=== PATIENT | male | born 1980 | race Hispanic/Latino ===

== ENCOUNTER 2016-08-15 07:58 | Emergency (ER) | payer SELFPAY ==
[2016-08-15] MEDS ORDERED: TRIPLE ANTIBIOTIC TP ONE ×2 (10:45→10:49)
[2016-08-15 10:53] VITALS: BP 145/101
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
== END 2016-08-15 11:52 | disposition left against medical advice (07) ==
LOC: ED 07:58
DX: S00.31XA Abrasion of nose, initial encounter (principal); G89.29 Other chronic pain; F17.200 Nicotine dependence, unspecified, uncomplicated; V09.9XXA Pedestrian injured in unspecified transport accident, initial encounter; Y93.89 Activity, other specified; Y99.9 Unspecified external cause status; Y92.410 Unspecified street and highway as the place of occurrence of the external cause
CPT/HCPCS: 99282; A6250

== ENCOUNTER 2018-05-24 22:43 | Inpatient (IN) | payer SELFPAY ==
[2018-05-24] MEDS ORDERED: NACL 0.9% 500 ML IV PRN (22:55)
[2018-05-24] MEDS ORDERED: DIPRIVAN 10 MG/ML 1,000 MG/100 ML BOTTLE IV ONE (22:55)
[2018-05-24] MEDS ORDERED: ARTIFICIAL TEARS OPHTH OINT OU PRN (22:55)
[2018-05-24] MEDS ORDERED: fentaNYL DRIP Premix 2,000 MCG/100 ML BAG IV ONE (22:55)
[2018-05-24] MEDS ORDERED: VASELINE LIP THERAPY TP PRN (22:55)
[2018-05-24] MEDS ORDERED: SUBLIMAZE IV PRN (22:55)
[2018-05-24] MEDS ORDERED: DIPRIVAN 10 MG/ML 1,000 MG/100 ML BOTTLE IV SCH (23:00)
--- NOTE | 2018-05-24 23:01 | Emergency Department Report ---
ED General Adult HPI - General Chief complaint: Dyspnea/Respdistress Stated complaint: POSS OD Time Seen by Provider: 05/24/18 22:53 Source: family, EMS (verbal report received from EMS.ems notes not available at time of chart dictation) Mode of arrival: Stretcher Limitations: Altered Mental Status - History of Present Illness Initial comments: This is a 38-year-old gentleman brought to the hospital by EMS as an out of hospital presumed overdose. History is obtained from EMS, the patient's and his brother. Patient apparently has a history of polysubstance abuse as well as methamphetamine use. Brother, George; [phone] , Gisselle; [phone] as per verbal report from EMS, and the patient was found in bed, with multiple pill bottles, including narcotics, and a suspected overdose. As per his , he was apparently not breathing. EMS reports patient was not breathing very well, was somewhat sonorous, and give the patient Narcan. After giving Narcan, the patient apparently became very combative, and required administration of Benadryl, Versed, and other sedatives in the field. Upon arrival to the emergency room, the patient was breathing sonorously. The patient was intubated for airway protection. Postintubation, discussed findings and case with patient's brother and his . His brother articulated to this provider, that the patient had made some "odd" remarks recently, and he was concerned that the patient might attempt to hurt himself. He reported that they recently went out to lunch within the past week or so, the patient was not acting like his normal self. The patient's brother specifically concerned that this may be an intentional overdose. The patient is currently intubated and sedated, and cannot describe exacerbating or relieving factors, intention, or nature of his situation. As per EMS, patient had a normal fingerstick. There is no trauma as per EMS and family. -: unknown Consistency: other Improves with: other Worsens with: other Associated Symptoms: confusion - Related Data Allergies Allergy/AdvReac Type Severity Reaction Status Date / Time No Known Allergies Allergy Verified 05/24/18 23:11 ED Review of Systems ROS: Stated complaint: POSS OD Other details as noted in HPI Comment: Unobtainable due to pts medical conditions ED Past Medical Hx - Past Medical History Additional medical history: chronic back and neck pain - Surgical History Additional Surgical History: hernia repair - Social History Smoking Status: Current Every Day Smoker Substance Use Type: None ED Physical Exam - General Limitations: Altered Mental Status General appearance: lethargic - Head Head exam: Present: atraumatic, normocephalic - Eye Eye exam: Present: normal appearance, PERRL - ENT ENT exam: Present: normal orophraynx, mucous membranes moist, normal external ear exam - Neck Neck exam: Present: normal inspection, full ROM. Absent: tenderness, meningismus - Respiratory Respiratory exam: Present: respiratory distress, decreased breath sounds - Cardiovascular Cardiovascular Exam: Present: normal rhythm, tachycardia, normal heart sounds. Absent: systolic murmur, diastolic murmur, rubs, gallop - GI/Abdominal GI/Abdominal exam: Present: soft. Absent: distended, tenderness, guarding, rebound, rigid, pulsatile mass - Rectal Rectal exam: Present: normal inspection - exam: Present: normal inspection External exam: Present: normal external exam - Extremities Exam Extremities exam: Present: normal inspection, full ROM, other (patient moving 4 extremities prior to intubation) - Back Exam Back exam: Present: normal inspection, full ROM. Absent: tenderness, CVA tenderness (R), paraspinal tenderness, vertebral tenderness - Neurological Exam Neurological exam: Present: altered, other (there is no facial droop. Moving 4 extremities prior to intubation. Unable to complete detailed neurologic examination secondary to altered mental status) - Psychiatric Psychiatric exam: Present: other - Skin Skin exam: Present: warm, dry, intact, normal color. Absent: rash ED Course Vital Signs 05/24/18 05/24/18 05/24/18 22:45 23:20 23:30 Pulse Rate 136 H 138 H 134 H Respiratory 15 18 20 Rate Blood Pressure 177/104 130/71 O2 Sat by Pulse 99 96 95 Oximetry 05/24/18 05/24/18 05/25/18 23:31 23:45 00:00 Pulse Rate 129 H 127 H 117 H Respiratory 20 20 Rate Blood Pressure 130/71 112/58 112/59 O2 Sat by Pulse 96 96 97 Oximetry 05/25/18 05/25/18 00:18 00:55 Pulse Rate 119 H 104 H Respiratory 20 Rate Blood Pressure 130/71 88/48 O2 Sat by Pulse Oximetry - Reevaluation(s) Reevaluation #1: 05/25/18 00:23 Dr Smith accepts to medical service Reevaluation #2: 05/25/18 01:[address] scan of the brain is negative for acute disease. - Intubation Time Out Performed: Yes Sedative: Etomidate Mg Given: 20 Paralytic: Rocuronium Mg Given: 100 Laryngoscope: Trupti Size: 4 Assist Device Used: Bougie ET Tube Size: 7.5 Tube Secured Depth (cm): 23 Tube Secured Location: teeth Tube Placement Confirmation: equal breath sounds bilat, no breath sounds over epi, confirmation by capnometr Patient Tolerated Procedure: well Intubation Complications: none Additional Comments: Patient placed on a nasal cannula at 15 L/m. Receives ixl-gngot-ydth ventilation. Towel rolls in place underneath the shoulders to align ear to sternal notch. Direct laryngoscopy performed, and epiglottis is visualized. Elastic bougie was inserted, and palpable clicks are appreciated, as bougie traverses the trachea. A 7.5 endotracheal tube is inserted over bougie catheter, bougie catheter is then retracted, automatic pilot mechanic balloon is inflated, and [id number]-wduwe-[id number] ventilations applied with color change capnography. There is appropriate color change, cond ensation in the tube, and equal breath sounds bilaterally. Radial laryngoscopy is then performed, and confirms tube placement. ED Medical Decision Making - Lab Data Result diagrams: 05/24/18 22:51 05/24/18 23:00 Vital Signs 05/24/18 05/24/18 22:45 23:31 Pulse Rate 136 H 129 H Respiratory 15 Rate Blood Pressure 177/104 130/71 O2 Sat by Pulse 99 96 Oximetry Lab Results 05/24/18 05/24/18 05/24/18 Range/Units 22:51 22:51 22:51 WBC 11.1 H (4.5-11.0) K/mm3 RBC 5.24 H (3.65-5.03) M/mm3 Hgb 16.5 H (11.8-15.2) gm/dl Hct 48.7 H (35.5-45.6) % MCV 93 (84-94) fl MCH 32 (28-32) pg MCHC 34 (32-34) % RDW 14.0 (13.2-15.2) % Plt Count 359 (140-440) K/mm3 PT (12.2-14.9) Sec. INR (0.87-1.13) POC ABG pH (7.35-7.45) POC ABG pCO2 (35-45) POC ABG pO2 (80-105) POC ABG HCO3 POC ABG Total CO2 POC ABG O2 Sat POC ABG Base Excess FiO2 % Sodium (137-145) mmol/L Potassium (3.6-5.0) mmol/L Chloride (98-107) mmol/L Carbon Dioxide (22-30) mmol/L Anion Gap mmol/L BUN (9-20) mg/dL Creatinine (0.8-1.5) mg/dL Estimated GFR ml/min BUN/Creatinine Ratio % Glucose (75-100) mg/dL Calcium (8.4-10.2) mg/dL Magnesium (1.7-2.3) mg/dL Total Bilirubin (0.1-1.2) mg/dL AST (5-40) units/L Alkaline Phosphatase (35-129) units/L Total Protein (6.3-8.2) g/dL Albumin (3.9-5) g/dL Albumin/Globulin Ratio % Urine Color (Yellow) Urine Turbidity (Clear) Urine pH (5.0-7.0) Ur Specific [place] (1.003-1.030) Urine Protein (Negative) mg/dL Urine Glucose (UA) (Negative) mg/dL Urine Ketones (Negative) mg/dL Urine Blood (Negative) Urine Nitrite (Negative) Urine Bilirubin (Negative) Urine Urobilinogen (<2.0) mg/dL Ur Leukocyte Esterase (Negative) Urine WBC (Auto) (0.0-6.0) /HPF Urine RBC (Auto) (0.0-6.0) /HPF Hyaline Casts /LPF Urine Mucus /HPF Salicylates 1.2 L (2.8-20.0) mg/dL Urine Opiates Screen Urine Methadone Screen Acetaminophen < 5.0 L (10.0-30.0) ug/mL Ur Barbiturates Screen Ur Phencyclidine Scrn Urine Cocaine Screen U Marijuana (THC) Screen Plasma/Serum Alcohol (0-0.07) % 01/14/19 01/14/19 01/14/19 Range/Units 22:51 22:51 23:00 WBC (4.5-11.0) K/mm3 RBC (3.65-5.03) M/mm3 Hgb (11.8-15.2) gm/dl Hct (35.5-45.6) % MCV (84-94) fl MCH (28-32) pg MCHC (32-34) % RDW (13.2-15.2) % Plt Count (140-440) K/mm3 PT 13.2 (12.2-14.9) Sec. INR 0.96 (0.87-1.13) POC ABG pH (7.35-7.45) POC ABG pCO2 (35-45) POC ABG pO2 (80-105) POC ABG HCO3 POC ABG Total CO2 POC ABG O2 Sat POC ABG Base Excess FiO2 % Sodium 132 L (137-145) mmol/L Potassium 4.6 (3.6-5.0) mmol/L Chloride 94.5 L (98-107) mmol/L Carbon Dioxide 21 L (22-30) mmol/L Anion Gap 21 mmol/L BUN 14 (9-20) mg/dL Creatinine 1.2 (0.8-1.5) mg/dL Estimated GFR > 60 ml/min BUN/Creatinine Ratio 12 % Glucose 120 H (75-100) mg/dL Calcium 9.4 (8.4-10.2) mg/dL Magnesium 2.50 H (1.7-2.3) mg/dL Total Bilirubin 0.30 (0.1-1.2) mg/dL AST 32 (5-40) units/L Alkaline Phosphatase 68 (35-129) units/L Total Protein 7.5 (6.3-8.2) g/dL Albumin 4.7 (3.9-5) g/dL Albumin/Globulin Ratio 1.7 % Urine Color (Yellow) Urine Turbidity (Clear) Urine pH (5.0-7.0) Ur Specific [place] (1.003-1.030) Urine Protein (Negative) mg/dL Urine Glucose (UA) (Negative) mg/dL Urine Ketones (Negative) mg/dL Urine Blood (Negative) Urine Nitrite (Negative) Urine Bilirubin (Negative) Urine Urobilinogen (<2.0) mg/dL Ur Leukocyte Esterase (Negative) Urine WBC (Auto) (0.0-6.0) /HPF Urine RBC (Auto) (0.0-6.0) /HPF Hyaline Casts /LPF Urine Mucus /HPF Salicylates (2.8-20.0) mg/dL Urine Opiates Screen Urine Methadone Screen Acetaminophen (10.0-30.0) ug/mL Ur Barbiturates Screen Ur Phencyclidine Scrn Urine Cocaine Screen U Marijuana (THC) Screen Plasma/Serum Alcohol < 0.01 (0-0.07) % 05/24/18 05/24/18 05/24/18 Range/Units 23:19 23:19 23:24 WBC (4.5-11.0) K/mm3 RBC (3.65-5.03) M/mm3 Hgb (11.8-15.2) gm/dl Hct (35.5-45.6) % MCV (84-94) fl MCH (28-32) pg MCHC (32-34) % RDW (13.2-15.2) % Plt Count (140-440) K/mm3 PT (12.2-14.9) Sec. INR (0.87-1.13) POC ABG pH 7.303 L (7.35-7.45) POC ABG pCO2 42.6 (35-45) POC ABG pO2 102 (80-105) POC ABG HCO3 21.1 POC ABG Total CO2 22 POC ABG O2 Sat 97 POC ABG Base Excess -5 FiO2 50 % Sodium (137-145) mmol/L Potassium (3.6-5.0) mmol/L Chloride (98-107) mmol/L Carbon Dioxide (22-30) mmol/L Anion Gap mmol/L BUN (9-20) mg/dL Creatinine (0.8-1.5) mg/dL Estimated GFR ml/min BUN/Creatinine Ratio % Glucose (75-100) mg/dL Calcium (8.4-10.2) mg/dL Magnesium (1.7-2.3) mg/dL Total Bilirubin (0.1-1.2) mg/dL AST (5-40) units/L Alkaline Phosphatase (35-129) units/L Total Protein (6.3-8.2) g/dL Albumin (3.9-5) g/dL Albumin/Globulin Ratio % Urine Color Yellow (Yellow) Urine Turbidity Clear (Clear) Urine pH 5.0 (5.0-7.0) Ur Specific [place] 1.019 (1.003-1.030) Urine Protein 100 mg/dl (Negative) mg/dL Urine Glucose (UA) Neg (Negative) mg/dL Urine Ketones Neg (Negative) mg/dL Urine Blood Sm (Negative) Urine Nitrite Neg (Negative) Urine Bilirubin Neg (Negative) Urine Urobilinogen < 2.0 (<2.0) mg/dL Ur Leukocyte Esterase Neg (Negative) Urine WBC (Auto) 6.0 (0.0-6.0) /HPF Urine RBC (Auto) 1.0 (0.0-6.0) /HPF Hyaline Casts 1 /LPF Urine Mucus Few /HPF Salicylates (2.8-20.0) mg/dL Urine Opiates Screen Presumptive negative Urine Methadone Screen Presumptive negative Acetaminophen (10.0-30.0) ug/mL Ur Barbiturates Screen Presumptive negative Ur Phencyclidine Scrn Presumptive negative Urine Cocaine Screen Presumptive negative U Marijuana (THC) Screen Presumptive negative Plasma/Serum Alcohol (0-0.07) % - EKG Data -: EKG Interpreted by Me Rate: tachycardia - EKG Data 05/25/18 00:18 Tachycardia, 147 bpm, normal axis, normal intervals, low voltage, poor R progression, abnormal EKG, not consistent with ST elevation myocardial infarction. - Radiology Data Radiology results: pending, report reviewed, image reviewed interpreted by me: X-ray of the chest shows appropriate placement of endotracheal tube and nasogastric tube. - Medical Decision Making Differential diagnosis, including but not limited to: Overdose, respiratory failure, suicidality Assessment and plan: 38-year-old gentleman who presents with overdose, respiratory failure, requiring intubation. He will be ventilated on the lung protective strategy. We will provide supportive care. Screening laboratory studies thus far unremarkable. Given history and collateral history from family, brother, concerned about possible intentional overdose. Given that we do not know what time the overdose took place, given concomitant respiratory failure, it is my opinion that charcoal risks outweigh benefits. Noncontrast CT scan of the brain is pending to exclude hemorrhage, patient is placed on a 1013, and I explained this the patient's brother and who verbalized understanding. Discussed with critical care physician, Dr. Gama, who is amenable to placement into the intensive care unit. We will contact the medical team to arrange admission into the intensive care unit. Critical Care Time: Yes Critical care time in (mins) excluding proc time.: 45 Critical care attestation.: If time is entered above; I have spent that time in minutes in the direct care o f this critically ill patient, excluding procedure time. ED Disposition Clinical Impression: Overdose, Respiratory failure Disposition: OP ADMIT IP TO THIS HOSP Is pt being admited?: Yes Condition: Critical
[2018-05-24 23:05] LABS: Hematocrit 48.7 % (35.5-45.6); Hemoglobin 16.5 gm/dl (11.8-15.2); Mean Corpuscular HGB Conc 34 % (32-34); Mean Corpuscular Volume 93 fl (84-94); Platelet Count 359 K/mm3 (140-440); Red Blood Count 5.24 M/mm3 (3.65-5.03)
[2018-05-24] MEDS: fentaNYL DRIP Premix 2,000 MCG/100 ML BAG IV SCH (23:05)
[2018-05-24 23:11] LABS: INR 0.96 (0.87-1.13)
[2018-05-24 23:39] LABS: Albumin 4.7 g/dL (3.9-5); BUN/Creatinine Ratio 12; Blood Urea Nitrogen 14 mg/dL (9-20); Calcium 9.4 mg/dL (8.4-10.2); Hemolysis Index 25
[2018-05-25] LABS: Bilirubin,Urine NEG (Negative); Blood,Urine SM (Negative); Color,Urine Yellow (Yellow); Hyaline Casts,Urine 1 /LPF; Mucus,Urine FEW /HPF; Urobilinogen,Urine < 2.0 mg/dL (<2.0)
--- NOTE | 2018-05-25 00:09 | XRay Report ---
FINAL REPORT EXAM: XR CHEST 1V AP HISTORY: ETT placement TECHNIQUE: A portable semi-upright view the chest was obtained. FINDINGS: The tip of the ET tube is at the joelle. The tip of the NG tube is in good position in the stomach. T he heart size is normal. The pulmonary vasculature is at the upper limits normal. There are no locali zed infiltrates or effusions. The skeletal structures do not show any acute changes. IMPRESSION: No acute infiltrates or congestion. Tip of the ET tube is at the joelle. NG tube in good position in the stomach.
[2018-05-25 00:12] LABS: Cannabinoid Screen,Urine PRESUMPTIVE NEGATIVE; Cocaine Screen,Urine PRESUMPTIVE NEGATIVE; Methadone Screen,Urine PRESUMPTIVE NEGATIVE; Opiate Screen,Urine PRESUMPTIVE NEGATIVE
[2018-05-25 00:24] LABS: Amphetamine Screen,Urine PRESUMPTIVE POSITIVE; Benzodiazepines Screen,Urine PRESUMPTIVE POSITIVE
--- NOTE | 2018-05-25 00:59 | Cat Scan Report ---
FINAL REPORT EXAM: CT HEAD/BRAIN WO CON HISTORY: ams TECHNIQUE: CT was performed from the foramen magnum through the vertex in the axial plane without th e use of intravenous contrast. PRIORS: None. FINDINGS: The hankins/white matter attenuation pattern is normal. There is no mass lesion or mass effect. There ar e no abnormal extra-axial fluid collections. There is no evidence of acute intracranial hemorrhage or infarct. The ventricles are of normal size and configuration. The skull and orbits are unremarkable . There is patchy mucosal thickening in the right sphenoid sinus and in the bilateral ethmoid air wilber ls. IMPRESSION: Normal CT of the head.
[2018-05-25 01:13] LABS: Alanine Aminotransferase 38 units/L (7-56)
[2018-05-25] MEDS ORDERED: AMIDATE IV ONE (01:15)
[2018-05-25] MEDS ORDERED: ZEMURON IV ONE (01:15)
[2018-05-25] MEDS ORDERED: fentaNYL DRIP Premix 2,000 MCG/100 ML BAG IV ONE ×3 (01:35→10:51)
[2018-05-25] MEDS ORDERED: TYLENOL PR PRN (02:02)
[2018-05-25] MEDS ORDERED: ZOFRAN IV PRN (02:03)
[2018-05-25] MEDS ORDERED: VASELINE LIP THERAPY TP ONE (02:03)
[2018-05-25] MEDS ORDERED: DIPRIVAN 10 MG/ML 1,000 MG/100 ML BOTTLE IV ONE (02:11)
[2018-05-25] MEDS ORDERED: NACL 0.9% 1000 ML 2,000 ML ONE (02:33)
[2018-05-25] MEDS ORDERED: NACL 0.9% 1000 ML 1,000 ML IV ONE ×2 (02:38)
[2018-05-25 06:09] LABS: Creatine Kinase MB 8.3 ng/mL (0.0-4.0)
--- NOTE | 2018-05-25 07:23 | History and Physical Report ---
CHIEF COMPLAINT: Shortness of breath. OTHER COMPLAINT: Includes seizure attack. HISTORY OF PRESENT ILLNESS: The patient is a 38-year-old male, who was brought to the Emergency Room by [facility] after the patient's say that patient was noted to have started having seizure attack with jerking movement of the body and then developed respiratory distress and EMS was called; however, the patient has history of polysubstance abuse. There was no history of chest pain, no history of fever, nausea or vomiting. The patient's stated he was doing something when all of a sudden he started having this attack of seizure that led to the patient's change in mental status and shortness of breath. PAST MEDICAL HISTORY: Pertinent for recent diagnosis of seizure disorder. Also the patient has past medical history of chronic back pain and neck pain and there is past history of polysubstance abuse according to the Emergency Room documentation. FAMILY HISTORY: Family history is noncontributory. SOCIAL HISTORY: The patient smokes cigarettes, uses illicit drugs and is not clear whether the patient drinks alcohol. MEDICATIONS: The patient's home medications are not known. ALLERGIES: There are no known drug allergies. REVIEW OF SYSTEMS: CONSTITUTIONAL: There is no fever, no chills, no diaphoresis. HEENT: There is no headache or sore throat. CARDIOVASCULAR SYSTEM: There is no chest pain or orthopnea. RESPIRATORY SYSTEM: Shortness of breath is present. There is no cough. GASTROINTESTINAL SYSTEM: There is no nausea, no vomiting, no abdominal pain, diarrhea or constipation. NEUROLOGICAL SYSTEM: Seizure attack noted. Change in mental status noted. MUSCULOSKELETAL SYSTEM: There is no joint pain or swelling. DERMATOLOGICAL SYSTEM: There is no skin rash or itching. GENITOURINARY SYSTEM: There is no dysuria, hematuria or flank pain. Rest of system review is normal. PHYSICAL EXAMINATION: GENERAL: At the time of exam, the patient was found to be sedated, intubated and mechanically ventilated and not in acute distress. VITAL SIGNS: At the initial time of presentation shows a pulse of 136, respirations 15, blood pressure 177/104, O2 sat of 99% while on mechanical ventilation. The patient's temperature was noted to be normal. HEENT: Show pupils which were round, reactive to light and accommodating. The patient also has ET tube through the mouth. NECK: Neck is supple with no JVD or carotid bruits. CARDIOVASCULAR SYSTEM: Showed normal first and second heart sounds with no gallops or murmurs. RESPIRATORY SYSTEM: Show good air entry on both sides of the lungs with no abnormal breath sounds. GASTROINTESTINAL SYSTEM: Show abdomen to be full, soft, nontender with no organomegaly or rigidity. NEUROLOGIC: Shows the patient to be sedated with no focal deficit. MUSCULOSKELETAL SYSTEM: Show no joint swelling or tenderness. DERMATOLOGIC SYSTEM: Show no skin rash. GENITOURINARY SYSTEM: Showing no costovertebral angle tenderness. PERTINENT LABORATORY AND IMAGING STUDIES: The patient had a CT of the head without contrast done that came back unremarkable. The patient's chest shows no acute infiltrate or congestion with the tip of the ET tube at the jeolle and also the chest x-ray shows nasogastric tube in good position in the stomach. Lab results; the patient's CBC shows slightly elevated white count of 11,100 with a hemoglobin of 16.5 and high hematocrit of 48.7 with normal coagulations studies. The patient's ABG showed low pH of 7.3 with normal pCO2 of 42.6 and normal pO2 of 102 with normal O2 sat of 97% and this was done on FiO2 of 50%. The patient's chemistry shows a low sodium level of 132 with low chloride level of 94.5 and low CO2 of 21 with slightly elevated magnesium level of 2.5. The patient's urinalysis was unremarkable and the patient's toxicology study show positive result for amphetamine and benzodiazepine. DIAGNOSES: 1. Drug overdose with amphetamine and benzodiazepines. 2. Respiratory failure needing mechanical ventilation. 3. Seizure disorder. PLAN OF ACTION: 1. The patient will be admitted to ICU. 2. The patient will have critical care consult with Dr. Gama. 3. The patient will have Neurology consult with Dr. Cecelia Echevarria for management of seizure attack. 4. The patient will have respiratory therapy consult for management of the ventilator. 5. The patient will have Mental Health consult because of the substance abuse. 6. The patient will have cardiac enzymes involving troponin, total CK and CK-MB check q. 6 hours x 2 more levels. 7. The patient will be on p.r.n. medications like Tylenol 650 mg per rectum every 4 hours for fever and headache and will be on IV Zofran 4 mg every 8 hours for nausea and vomiting. 8. The patient will continue IV propofol by protocol for maintenance of sedation while on mechanical ventilation. 9. The patient's DVT prophylaxis will be through heparin 5000 units subQ q. 12 hours. 10. The patient will be on IV Keppra 750 mg q. 12 hours for treatment of seizure. JOB# [id number] OCN/NTS
[2018-05-25] MEDS ORDERED: NACL 0.9% 1000 ML 1,000 ML ONE (09:26)
[2018-05-25] MEDS ORDERED: HEPARIN ONE ×2 (09:50→21:49)
[2018-05-25] MEDS: KEPPRA 750 MG in NACL 0.9% 100 ML IV SCH ×2 (10:38→21:57)
[2018-05-25] MEDS: HEPARIN SUB-Q SCH ×2 (10:38→21:57)
[2018-05-25] MEDS: fentaNYL DRIP Premix 2,000 MCG/100 ML BAG IV SCH (11:23)
[2018-05-25] MEDS ORDERED: HALDOL IV PRN (12:12)
[2018-05-25] MEDS ORDERED: ATIVAN IV PRN (12:13)
[2018-05-25 15:36] LABS: Creatine Kinase MB 18.9 ng/mL (0.0-4.0)
[2018-05-25] MEDS ORDERED: D5NS 1,000 ML IV SCH (17:00)
--- NOTE | 2018-05-25 17:04 | Event Note ---
Date: 05/25/18 Patient with acute resp failure, intubated, seizures, substance abuse. I have seen and examined him. Discussed with at bedside.
--- NOTE | 2018-05-26 04:21 | XRay Report ---
FINAL REPORT PROCEDURE: XR CHEST 1V AP TECHNIQUE: Chest radiograph anteroposterior view. CPT 13486 HISTORY: follow up respiratory failure COMPARISON: 05/24/2018 FINDINGS: Heart: Normal. Mediastinum/Vessels: Normal. Lungs/Pleural space: Normal. Bony thorax: No acute osseous abnormality. Life support devices: None. IMPRESSION: No acute cardiopulmonary abnormality.
[2018-05-26] MEDS ORDERED: HEPARIN ONE (09:35)
[2018-05-26] MEDS: KEPPRA 750 MG in NACL 0.9% 100 ML IV SCH ×2 (09:40→22:46)
[2018-05-26] MEDS: HEPARIN SUB-Q SCH ×2 (09:40→22:45)
--- NOTE | 2018-05-26 10:32 | Consultation ---
History of Present Illness - Reason for Consult Consult date: 05/26/18 Reason for consult: Mental Health Evaluation Requesting physician: GERSON SONG - Chief Complaint Chief complaint: "I didn't try to kill myself" - History of Present Psychiatric Illness 38 y.o. white male who presented to the ER for possible overdose. Today the patient is irritable during the assessment. He stated, "I didn't try to kill myself." He refused to answer anymore questions after making the statement about not trying to kill himself. His spouse Mirtha Salazar was at the bedside. She was asked about what happened, she replied, "I wasn't there." Medications and Allergies Allergies Allergy/AdvReac Type Severity Reaction Status Date / Time No Known Allergies Allergy Verified 05/24/18 23:11 Home Medications Medication Instructions Recorded Confirmed Last Taken Type Oxycodone HCl/Acetaminophen 1 each PO Q6HR PRN 05/26/18 05/26/18 Unknown History [Percocet 10/325 mg] Active Meds: Active Medications Acetaminophen (Tylenol) 650 mg [place] Q4H PRN PRN Reason: Pain, Mild (1-3) Diphenhydramine HCl (Benadryl) 25 mg IV Q6H PRN PRN Reason: Itching Haloperidol Lactate (Haldol) 5 mg IV Q6H PRN PRN Reason: Agitation Heparin Sodium (Porcine) (Heparin) 5,000 unit SUB-Q Q12HR [facility] Last Admin: 05/26/18 09:40 Dose: Not Given Documented by: Hydrophilic Ointment (Vaseline Lip Therapy) 1 applic TP Q2HR PRN PRN Reason: Dry Lips Last Admin: 05/25/18 02:26 Dose: 1 applic Documented by: Levetiracetam 750 mg/ Sodium (Chloride) 107.5 mls @ 400 mls/hr IV Q12HR [facility] Last Admin: 05/26/18 09:40 Dose: 400 mls/hr Documented by: Dextrose/Sodium Chloride (D5ns) 1,000 mls @ 100 mls/hr IV DIRECT [facility] Last Admin: 05/25/18 17:00 Dose: 100 mls/hr Documented by: Lorazepam (Ativan) 2 mg IV Q4H PRN PRN Reason: Agitation Multi-Ingred Cream/Lotion/Oil/Oint (Artificial Tears Ophth Oint) 1 applic OU Q4HR PRN PRN Reason: Dry Eye(s) Ondansetron HCl (Zofran) 4 mg IV Q8H PRN PRN Reason: Nausea And Vomiting Sodium Chloride (Nacl 0.9% 500 Ml) 5 ml IV DIRECT PRN PRN Reason: ARTERIAL PRODUCTION CONTROL EXPEDITER Past psychiatric history - Past Medical History Past Medical History: other (Unable to obtain ) Past Surgical History: Other (Unable to obtain ) - past Psychiatric treatment and history psychiatric treatment history: Unable to obtain a psy hx and fam psy hx. - Social History Social history: lives with family Mental Status Exam - Vital signs Last Vital Signs Temp 97.7 F 05/26/18 09:43 Pulse 71 05/26/18 09:43 Resp 22 05/26/18 09:43 BP 127/87 05/26/18 09:43 Pulse Ox 95 05/26/18 09:43 - Exam Narrative exam: Unable to complete the MSE because the patient refused to cooperate. Results Result Diagrams: 05/24/18 22:51 05/24/18 23:00 Abnormal lab results 05/25/18 Range/Units 15:06 Total Creatine Kinase 789 H (55-170) units/L CK-MB (CK-2) 18.9 H (0.0-4.0) ng/mL All other labs normal. Assessment and Plan Assessment and plan: Impression: R/O Overdose. Today the patient is irritable during the assessment. Positive for benzos and amphetamines. Recommendation/Plan: Continue 1013 and gather collateral information. Reassess the patient in 24 hours. Dispo: Once collateral information is gathered, proper dispo will be determined once medically clear. Will staff with Dr Rick.
[2018-05-26] MEDS ORDERED: HALDOL IM PRN (11:15)
--- NOTE | 2018-05-26 12:07 | Progress Note ---
Assessment and Plan Assessment and plan: Acute respiratory failure, Was intubated, now extubated Breakthrough seizures. Patient had history of seizure last year, as per at bedside. continue keppra Toxic metabolic encephalopathy Drug overdose, presumed patient found with many pill bottles around Suicidal watch Polysubstance abuse. Chronic pain Full code status History Interval history: Now extubated, Gen weakness sleepiness Hospitalist Physical - Physical exam Narrative exam: GEN: Not in acute distress,lying in bed, obese HEENT: Normocephalic, atraumatic, Neck: supple, No JVD Lungs: Clear to auscultation, no wheeze Heart:S1 and S2 regular, no murmurs, rubs or gallop, Abd:soft, non tender, non distended, normal bowel sounds Ext: No edema, no clubbing or cyanosis Neuro: Lethargic, arouseable - Constitutional Vitals: Temp Pulse Resp BP Pulse Ox 97.7 F 71 22 127/87 95 05/26/18 09:43 05/26/18 09:43 05/26/18 09:43 05/26/18 09:43 05/26/18 09:43 Results - Labs CBC & Chem 7: 05/26/18 19:19 05/26/18 19:19 Labs: Laboratory Last Values WBC 11.1 K/mm3 (4.5-11.0) H 05/24/18 22:51 RBC 5.24 M/mm3 (3.65-5.03) H 05/24/18 22:51 Hgb 16.5 gm/dl (11.8-15.2) H 05/24/18 22:51 Hct 48.7 % (35.5-45.6) H 05/24/18 22:51 MCV 93 fl (84-94) 05/24/18 22:51 MCH 32 pg (28-32) 05/24/18 22:51 MCHC 34 % (32-34) 05/24/18 22:51 RDW 14.0 % (13.2-15.2) 05/24/18 22:51 Plt Count 359 K/mm3 (140-440) 05/24/18 22:51 PT 13.2 Sec. (12.2-14.9) 05/24/18 22:51 INR 0.96 (0.87-1.13) 05/24/18 22:51 POC ABG pH 7.327 (7.35-7.45) L 05/25/18 05:46 POC ABG pCO2 41.8 (35-45) 05/25/18 05:46 POC ABG pO2 161 (80-105) H 05/25/18 05:46 POC ABG HCO3 21.9 05/25/18 05:46 POC ABG Total CO2 23 05/25/18 05:46 POC ABG O2 Sat 99 05/25/18 05:46 POC ABG Base Excess -4 05/25/18 05:46 FiO2 40 % 05/25/18 05:46 Sodium 132 mmol/L (137-145) L 05/24/18 23:00 Potassium 4.6 mmol/L (3.6-5.0) 05/24/18 23:00 Chloride 94.5 mmol/L (98-107) L 05/24/18 23:00 Carbon Dioxide 21 mmol/L (22-30) L 05/24/18 23:00 Anion Gap 21 mmol/L 05/24/18 23:00 BUN 14 mg/dL (9-20) 05/24/18 23:00 Creatinine 1.2 mg/dL (0.8-1.5) 05/24/18 23:00 Estimated GFR > 60 ml/min 05/24/18 23:00 BUN/Creatinine Ratio 12 % 05/24/18 23:00 Glucose 120 mg/dL (75-100) H 05/24/18 23:00 POC Glucose 79 (70-105) 05/25/18 14:40 Calcium 9.4 mg/dL (8.4-10.2) 05/24/18 23:00 Magnesium 2.50 mg/dL (1.7-2.3) H 05/24/18 23:00 Total Bilirubin 0.30 mg/dL (0.1-1.2) 05/24/18 23:00 AST 32 units/L (5-40) 05/24/18 23:00 ALT 38 units/L (7-56) 05/24/18 23:00 Alkaline Phosphatase 68 units/L (35-129) 05/24/18 23:00 Total Creatine Kinase 789 units/L (55-170) H 05/25/18 15:06 CK-MB (CK-2) 18.9 ng/mL (0.0-4.0) H 05/25/18 15:06 CK-MB (CK-2) Rel Index 2.3 (0-4) 05/25/18 15:06 Troponin T < 0.010 ng/mL (0.00-0.029) 05/25/18 15:06 Total Protein 7.5 g/dL (6.3-8.2) 05/24/18 23:00 Albumin 4.7 g/dL (3.9-5) 05/24/18 23:00 Albumin/Globulin Ratio 1.7 % 05/24/18 23:00 Urine Color Yellow (Yellow) 05/24/18 23: Urine Turbidity Clear (Clear) 05/24/18 23: Urine pH 5.0 (5.0-7.0) 05/24/18 23: Ur Specific [place] 1.019 (1.003-1.030) 05/24/18 23: Urine Protein 100 mg/dl mg/dL (Negative) 05/24/18 23: Urine Glucose (UA) Neg mg/dL (Negative) 05/24/18 23: Urine Ketones Neg mg/dL (Negative) 05/24/18 23:19 Urine Blood Sm (Negative) 05/24/18 23: Urine Nitrite Neg (Negative) 05/24/18: Urine Bilirubin Neg (Negative) 05/24/18 23: Urine Urobilinogen < 2.0 mg/dL (<2.0) 05/24/18 23:19 Ur Leukocyte Esterase Neg (Negative) 05/24/18 23:19 Urine WBC (Auto) 6.0 /HPF (0.0-6.0) 05/24/18 23:19 Urine RBC (Auto) 1.0 /HPF (0.0-6.0) 05/24/18 23: Hyaline Casts 1 /LPF 05/24/18 23: Urine Mucus Few /HPF 05/24/18 23: Salicylates 1.2 mg/dL (2.8-20.0) L 05/24/18 22:51 Urine Opiates Screen Presumptive negative 05/24/18 23: Urine Methadone Screen Presumptive negative 05/24/18 23: Acetaminophen < 5.0 ug/mL (10.0-30.0) L 05/24/18 22:51 Ur Barbiturates Screen Presumptive negative 05/24/18 23:19 Ur Phencyclidine Scrn Presumptive negative 05/24/18 23:19 Ur Amphetamines Screen Presumptive positive 05/24/18 23:19 U Benzodiazepines Scrn Presumptive positive 05/24/18 23:19 Urine Cocaine Screen Presumptive negative 05/24/18 23:19 U Marijuana (THC) Screen Presumptive negative 05/24/18 23:19 Drugs of Abuse Note Disclamer 05/24/18 23:19 Plasma/Serum Alcohol < 0.01 % (0-0.07) 05/24/18 22:51 Nutrition/Malnutrition Assess - Dietary Evaluation Nutrition/Malnutrition Findings: Nutrition Notes Start: 05/25/18 15:55 Freq: Status: Active Protocol: Document 05/25/18 15:55 PARKER (Rec: 05/25/18 16:26 PARKER [email or web address]) Co-Sign 05/25/18 15:55 NHALL Nutrition Notes Need for Assessment generated from: MD Order Initial or Follow up Assessment Current Diagnosis Respiratory Failure Other Pertinent Diagnosis Hx of polysubstance abuse including methamphetamie use Current Diet No diet ordered Labs/Tests Na: 132 M.5 Pertinent Medications Reviewed Height 6 ft Weight 113.398 kg [place] Body Weight (lbs) 178.0 BMI 33.9 Weight Status Obese Subjective/Other Information MD consult for evaluation of nutritional intake. Pt remains in ED on vent. NG tube placed for suction. Burn Absent Trauma Absent #1 Nutrition Diagnosis Inadequate oral intake Etiology Vent As Evidenced by Signs and Symptoms Pt NPO Is patient on ventilator? Yes Is Patient Ambulatory and/or Out of Bed No REE-([facility]-confined to bed) 2512.668 Kcal/Kg value to use for calculation 18 Approximate Energy Requirements Using 2041 kcal/Kg Calculation Used for Recommendations Kcal/kg Additional Notes IBW: 81kg PRO: 162g/day (2 g/kg IBW) Fluid: 1ml/kcal Nutrition Intervention Change Diet Order: Diet advancement Goal #1 Diet advancement or initiate TF Anticipated Discharge Needs: Unknown at this time Follow-Up By: 05/26/18 Additional Comments F/u: TF consult, extubation
--- NOTE | 2018-05-26 18:26 | Consultation ---
History of Present Illness Consult date: 05/26/18 Requesting physician: GERSON HARP Reason for Consult: altered mental status History of present illness: 38 yr old male with hx of polysubstance abuse, was brought to ER on 05/25/18 after being found at home not breathing well, unresponsive, and with an assortment of different pill bottles surrounding him. After being given Narcan he awakened and became combative. It was felt necessary to intubate him for airway protection. He has since been extubated and is alert and awake, tho drowsy this evening. CT brain was unremarkable. Lab studies are in order. At the present the pt. denies pain, is tolerating meals and resting comfortably. Past History Past Medical History: other (Unable to obtain ) Past Surgical History: Other (Unable to obtain ) Social history: , lives with family Medications and Allergies Allergies Allergy/AdvReac Type Severity Reaction Status Date / Time No Known Allergies Allergy Verified 05/24/18 23:11 Home Medications Medication Instructions Recorded Confirmed Last Taken Type Oxycodone HCl/Acetaminophen 1 each PO Q6HR PRN 05/26/18 05/26/18 Unknown History [Percocet 10/325 mg] Active Meds: Active Medications Acetaminophen (Tylenol) 650 mg [place] Q4H PRN PRN Reason: Pain, Mild (1-3) Diphenhydramine HCl (Benadryl) 25 mg IV Q6H PRN PRN Reason: Itching Haloperidol Lactate (Haldol) 5 mg IM Q6H PRN PRN Reason: Agitation Heparin Sodium (Porcine) (Heparin) 5,000 unit SUB-Q Q12HR [facility] Last Admin: 05/26/18 09:40 Dose: Not Given Documented by: Hydrophilic Ointment (Vaseline Lip Therapy) 1 applic TP Q2HR PRN PRN Reason: Dry Lips Last Admin: 05/25/18 02:26 Dose: 1 applic Documented by: Levetiracetam 750 mg/ Sodium (Chloride) 107.5 mls @ 400 mls/hr IV Q12HR [facility] Last Admin: 05/26/18 09:40 Dose: 400 mls/hr Documented by: Dextrose/Sodium Chloride (D5ns) 1,000 mls @ 100 mls/hr IV DIRECT [facility] Last Admin: 05/25/18 17:00 Dose: 100 mls/hr Documented by: Lorazepam (Ativan) 2 mg IV Q4H PRN PRN Reason: Agitation Multi-Ingred Cream/Lotion/Oil/Oint (Artificial Tears Ophth Oint) 1 applic OU Q4HR PRN PRN Reason: Dry Eye(s) Ondansetron HCl (Zofran) 4 mg IV Q8H PRN PRN Reason: Nausea And Vomiting Sodium Chloride (Nacl 0.9% 500 Ml) 5 ml IV DIRECT PRN 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 vp transportation - intact Motor - 5/5 throughout Reflexes - trace throughout. Sensory - intact to touch and pin bilaterally, all extremities. Cerebellar - intact FFM. Coby, FTN Gait - normal Results - Laboratory Findings CBC and BMP: 05/24/18 22:51 05/24/18 23:00 Abnormal Lab Findings: Abnormal Labs 05/24/18 05/24/18 05/24/18 22:51 22:51 22:51 WBC 11.1 H RBC 5.24 H Hgb 16.5 H Hct 48.7 H POC ABG pH POC ABG pO2 Sodium Chloride Carbon Dioxide Glucose Magnesium Total Creatine Kinase CK-MB (CK-2) Salicylates 1.2 L Acetaminophen < 5.0 L 05/24/18 05/24/18 05/25/18 23:00 23:24 05:11 WBC RBC Hgb Hct POC ABG pH 7.303 L POC ABG pO2 Sodium 132 L Chloride 94.5 L Carbon Dioxide 21 L Glucose 120 H Magnesium 2.50 H Total Creatine Kinase 645 H CK-MB (CK-2) 8.3 H Salicylates Acetaminophen 05/25/18 05/25/18 05:46 15:06 WBC RBC Hgb Hct POC ABG pH 7.327 L POC ABG pO2 161 H Sodium Chloride Carbon Dioxide Glucose Magnesium Total Creatine Kinase 789 H CK-MB (CK-2) 18.9 H Salicylates Acetaminophen Assessment and Plan 38 yr old admitted for overdose, slowly coming out of stupor. Psychiatry is on jason case. CT brain is unremarkable. Lab studies are OK. Plan - Will follow as he clears.
[2018-05-26 20:10] LABS: Hematocrit 42.3 % (35.5-45.6); Hemoglobin 14.5 gm/dl (11.8-15.2); Mean Corpuscular HGB Conc 34 % (32-34); Mean Corpuscular Volume 93 fl (84-94); Platelet Count 228 K/mm3 (140-440); Red Blood Count 4.55 M/mm3 (3.65-5.03); Red Cell Distribution Width 13.9 % (13.2-15.2)
[2018-05-26 20:35] LABS: BUN/Creatinine Ratio 10; Blood Urea Nitrogen 8 mg/dL (9-20); Calcium 8.3 mg/dL (8.4-10.2); Hemolysis Index 4
[2018-05-27] MEDS: HEPARIN SUB-Q SCH ×2 (09:26→21:40)
[2018-05-27] MEDS: KEPPRA 750 MG in NACL 0.9% 100 ML IV SCH ×2 (11:11→21:40)
--- NOTE | 2018-05-27 12:42 | Progress Note ---
Subjective - Reason for Consult Consult date: 05/27/18 Reason for consult: Psychiatry Follow-up - Chief Complaint Chief complaint: "I didn't try to kill myself" 38 y.o. white male who presented to the ER for possible overdose. Today the patient is calm and cooperative during the assessment. He is adamant that he didn't try to kill himself prior to his arrival to the hospital. He stated that he does have a hx of depression and substance abuse. He stated that he have discussed suicide with his brother most recently. He stated that he collapsed at home because of a seizure. He was asked about what happened prior to him collapsing, he stated, 'I don't know." He was asked about taking antidepressants, he stated I have. He denies SI/HI's and AVH's. Mental Status Exam - Vital signs Last Vital Signs Temp 98.0 F 05/27/18 04:23 Pulse 103 H 05/27/18 04:23 Resp 18 05/27/18 04:23 BP 156/84 05/27/18 04:23 Pulse Ox 90 05/27/18 04:23 - Exam Narrative exam: MSE: Appearance: calm, cooperative Behavior: regular eye contact Speech: regular rate and tone Mood: "okay" Affect: congruent to mood Thought Process: circumstantial Thought Content: denies SI/HI's and AVH's Motor Activity: sitting up in bed Cognition: A/O x 3 Insight:variable Judgment: variable Assessment and Plan Impression: Hx of Depression. Substance Use DO (amphetamines). Insomnia. Today the patient is calm and cooperative during the assessment. The patient was positive for benzos. Neuro is following the patient. Recommendation/Plan: Continue 1013, gather collateral information, and start Zoloft 50 mg PO daily for depression. Discussed possible suicidality/medication induced suze with the patient reference Zoloft. Dipso: Continue to assess the patient and once medically cleat, proper dispo will be determined. Will staff with Dr Rick.
--- NOTE | 2018-05-27 14:58 | Progress Note ---
Assessment and Plan Assessment and plan: Acute respiratory failure, Was intubated, now extubated Breakthrough seizures. Patient had history of seizure last year, as per . Patient confirms he had seizure last year while in skilled nursing was treated at [facility] in [place], [place] but not put on Anti-seizure meds continue keppra Toxic metabolic encephalopathy Drug overdose, presumed patient found with many pill bottles around Suicidal watch Polysubstance abuse. Chronic pain Full code status History Interval history: Now extubated, Gen weakness Denies being suicidal Hospitalist Physical - Physical exam Narrative exam: GEN: Not in acute distress,lying in bed, obese HEENT: Normocephalic, atraumatic, Neck: supple, No JVD Lungs: Clear to auscultation, no wheeze Heart:S1 and S2 regular, no murmurs, rubs or gallop, Abd:soft, non tender, non distended, normal bowel sounds Ext: No edema, no clubbing or cyanosis Neuro: AAO x 3, no focal signs Psych: normal mood - Constitutional Vitals: Temp Pulse Resp BP Pulse Ox 98.0 F 103 H 18 156/84 90 05/27/18 04:23 05/27/18 04:23 05/27/18 04:23 05/27/18 04:23 05/27/18 04:23 Results - Labs CBC & Chem 7: 05/26/18 19:19 05/26/18 19:19 Labs: Laboratory Last Values WBC 7.2 K/mm3 (4.5-11.0) 05/26/18 19:19 RBC 4.55 M/mm3 (3.65-5.03) 05/26/18 19:19 Hgb 14.5 gm/dl (11.8-15.2) 05/26/18 19:19 Hct 42.3 % (35.5-45.6) D 05/26/18 19:19 MCV 93 fl (84-94) 05/26/18 19:19 MCH 32 pg (28-32) 05/26/18 19:19 MCHC 34 % (32-34) 05/26/18 19:19 RDW 13.9 % (13.2-15.2) 05/26/18 19:19 Plt Count 228 K/mm3 (140-440) 05/26/18 19:19 PT 13.2 Sec. (12.2-14.9) 05/24/18 22:51 INR 0.96 (0.87-1.13) 05/24/18 22:51 POC ABG pH 7.327 (7.35-7.45) L 05/25/18 05:46 POC ABG pCO2 41.8 (35-45) 05/25/18 05:46 POC ABG pO2 161 (80-105) H 05/25/18 05:46 POC ABG HCO3 21.9 05/25/18 05:46 POC ABG Total CO2 23 05/25/18 05:46 POC ABG O2 Sat 99 05/25/18 05:46 POC ABG Base Excess -4 05/25/18 05:46 FiO2 40 % 05/25/18 05:46 Sodium 139 mmol/L (137-145) D 05/26/18 19:19 Potassium 3.9 mmol/L (3.6-5.0) 05/26/18 19:19 Chloride 100.9 mmol/L (98-107) 05/26/18 19:19 Carbon Dioxide 27 mmol/L (22-30) 05/26/18 19:19 Anion Gap 15 mmol/L 05/26/18 19:19 BUN 8 mg/dL (9-20) L 05/26/18 19:19 Creatinine 0.8 mg/dL (0.8-1.5) 05/26/18 19:19 Estimated GFR > 60 ml/min 05/26/18 19:19 BUN/Creatinine Ratio 10 % 05/26/18 19:19 Glucose 106 mg/dL (75-100) H 05/26/18 19:19 POC Glucose 79 (70-105) 05/25/18 14:40 Calcium 8.3 mg/dL (8.4-10.2) L 05/26/18 19:19 Magnesium 2.50 mg/dL (1.7-2.3) H 05/24/18 23:00 Total Bilirubin 0.30 mg/dL (0.1-1.2) 05/24/18 23:00 AST 32 units/L (5-40) 05/24/18 23:00 ALT 38 units/L (7-56) 05/24/18 23:00 Alkaline Phosphatase 68 units/L (35-129) 05/24/18 23:00 Total Creatine Kinase 494 units/L (55-170) H 05/27/18 05:11 CK-MB (CK-2) 18.9 ng/mL (0.0-4.0) H 05/25/18 15:06 CK-MB (CK-2) Rel Index 2.3 (0-4) 05/25/18 15:06 Troponin T < 0.010 ng/mL (0.00-0.029) 05/25/18 15:06 Total Protein 7.5 g/dL (6.3-8.2) 05/24/18 23:00 Albumin 4.7 g/dL (3.9-5) 05/24/18 23:00 Albumin/Globulin Ratio 1.7 % 05/24/18 23:00 Urine Color Yellow (Yellow) 05/24/18 23: Urine Turbidity Clear (Clear) 05/24/18 23: Urine pH 5.0 (5.0-7.0) 05/24/18 23:19 Ur Specific [place] 1.019 (1.003-1.030) 05/24/18 23:19 Urine Protein 100 mg/dl mg/dL (Negative) 05/24/18 23:19 Urine Glucose (UA) Neg mg/dL (Negative) 05/24/18 23: Urine Ketones Neg mg/dL (Negative) 05/24/18 23:19 Urine Blood Sm (Negative) 05/24/18 23:19 Urine Nitrite Neg (Negative) 05/24/18 23:19 Urine Bilirubin Neg (Negative) 05/24/18 23:19 Urine Urobilinogen < 2.0 mg/dL (<2.0) 05/24/18 23:19 Ur Leukocyte Esterase Neg (Negative) 05/24/18 23:19 Urine WBC (Auto) 6.0 /HPF (0.0-6.0) 05/24/18 23:19 Urine RBC (Auto) 1.0 /HPF (0.0-6.0) 05/24/18 23:19 Hyaline Casts 1 /LPF 05/24/18 23:19 Urine Mucus Few /HPF 05/24/18 23:19 Salicylates 1.2 mg/dL (2.8-20.0) L 05/24/18 22:51 Urine Opiates Screen Presumptive negative 05/24/18 23:19 Urine Methadone Screen Presumptive negative 05/24/18 23:19 Acetaminophen < 5.0 ug/mL (10.0-30.0) L 05/24/18 22:51 Ur Barbiturates Screen Presumptive negative 05/24/18 23:19 Ur Phencyclidine Scrn Presumptive negative 05/24/18 23:19 Ur Amphetamines Screen Presumptive positive 05/24/18 23:19 U Benzodiazepines Scrn Presumptive positive 05/24/18 23:19 Urine Cocaine Screen Presumptive negative 05/24/18 23:19 U Marijuana (THC) Screen Presumptive negative 05/24/18 23:19 Drugs of Abuse Note Disclamer 05/24/18 23:19 Plasma/Serum Alcohol < 0.01 % (0-0.07) 05/24/18 22:51 Nutrition/Malnutrition Assess - Dietary Evaluation Nutrition/Malnutrition Findings: Nutrition Notes Start: 05/25/18 15:55 Freq: Status: Active Protocol: Document 05/25/18 15:55 PARKER (Rec: 05/25/18 16:26 PARKER [email or web address]) Co-Sign 05/25/18 15:55 NHALL Nutrition Notes Need for Assessment generated from: MD Order Initial or Follow up Assessment Current Diagnosis Respiratory Failure Other Pertinent Diagnosis Hx of polysubstance abuse including methamphetamie use Current Diet No diet ordered Labs/Tests Na: 132 M.5 Pertinent Medications Reviewed Height 6 ft Weight 113.398 kg [place] Body Weight (lbs) 178.0 BMI 33.9 Weight Status Obese Subjective/Other Information MD consult for evaluation of nutritional intake. Pt remains in ED on vent. NG tube placed for suction. Burn Absent Trauma Absent #1 Nutrition Diagnosis Inadequate oral intake Etiology Vent As Evidenced by Signs and Symptoms Pt NPO Is patient on ventilator? Yes Is Patient Ambulatory and/or Out of Bed No REE-([facility]-confined to bed) 2512.668 Kcal/Kg value to use for calculation 18 Approximate Energy Requirements Using 2041 kcal/Kg Calculation Used for Recommendations Kcal/kg Additional Notes IBW: 81kg PRO: 162g/day (2 g/kg IBW) Fluid: 1ml/kcal Nutrition Intervention Change Diet Order: Diet advancement Goal #1 Diet advancement or initiate TF Anticipated Discharge Needs: Unknown at this time Follow-Up By: 05/26/18 Additional Comments F/u: TF consult, extubation
[2018-05-27] MEDS: ZOLOFT PO SCH (18:43)
[2018-05-27] MEDS: BENADRYL IV PRN (18:43)
[2018-05-27] MEDS: TYLENOL PO PRN (20:27)
[2018-05-27] MEDS ORDERED: CATAPRES PO ONE (21:30)
[2018-05-28] MEDS: BENADRYL IV PRN (00:40)
[2018-05-28] MEDS: TYLENOL PO PRN ×3 (03:42→23:35)
--- NOTE | 2018-05-28 09:19 | Progress Note ---
Assessment and Plan Assessment and plan: Acute respiratory failure, Was intubated, now extubated Breakthrough seizures. Patient had history of seizure last year, as per . Patient confirms he had seizure last year while in senior care was treated at [facility] in [place], [place] but not put on Anti-seizure meds continue keppra Toxic metabolic encephalopathy Drug overdose, presumed patient found with many pill bottles around Suicidal watch Polysubstance abuse. Chronic pain Full code status Still on 1013 hold History Interval history: Now extubated, Gen weakness Denies being suicidal Hospitalist Physical - Physical exam Narrative exam: GEN: Not in acute distress,lying in bed, obese HEENT: Normocephalic, atraumatic, Neck: supple, No JVD Lungs: Clear to auscultation, no wheeze Heart:S1 and S2 regular, no murmurs, rubs or gallop, Abd:soft, non tender, non distended, normal bowel sounds Ext: No edema, no clubbing or cyanosis Neuro: AAO x 3, no focal signs Psych: normal mood - Constitutional Vitals: Temp Pulse Resp BP Pulse Ox 98.2 F 74 18 142/83 97 05/28/18 04:00 05/28/18 04:00 05/28/18 04:00 05/28/18 04:00 05/28/18 04:00 Results - Labs CBC & Chem 7: 05/26/18 19:19 05/26/18 19:19 Labs: Laboratory Last Values WBC 7.2 K/mm3 (4.5-11.0) 05/26/18 19: RBC 4.55 M/mm3 (3.65-5.03) 05/26/18 19:19 Hgb 14.5 gm/dl (11.8-15.2) 05/26/18 19:19 Hct 42.3 % (35.5-45.6) D 05/26/18 19:19 MCV 93 fl (84-94) 05/26/18 19:19 MCH 32 pg (28-32) 05/26/18 19:19 MCHC 34 % (32-34) 05/26/18 19:19 RDW 13.9 % (13.2-15.2) 05/26/18 19:19 Plt Count 228 K/mm3 (140-440) 05/26/18 19:19 PT 13.2 Sec. (12.2-14.9) 05/24/18 22:51 INR 0.96 (0.87-1.13) 05/24/18 22:51 POC ABG pH 7.327 (7.35-7.45) L 05/25/18 05:46 POC ABG pCO2 41.8 (35-45) 05/25/18 05:46 POC ABG pO2 161 (80-105) H 05/25/18 05:46 POC ABG HCO3 21.9 05/25/18 05:46 POC ABG Total CO2 23 05/25/18 05:46 POC ABG O2 Sat 99 05/25/18 05:46 POC ABG Base Excess -4 05/25/18 05:46 FiO2 40 % 05/25/18 05:46 Sodium 139 mmol/L (137-145) D 05/26/18 19:19 Potassium 3.9 mmol/L (3.6-5.0) 05/26/18 19:19 Chloride 100.9 mmol/L (98-107) 05/26/18 19:19 Carbon Dioxide 27 mmol/L (22-30) 05/26/18 19:19 Anion Gap 15 mmol/L 05/26/18 19:19 BUN 8 mg/dL (9-20) L 05/26/18 19:19 Creatinine 0.8 mg/dL (0.8-1.5) 05/26/18 19:19 Estimated GFR > 60 ml/min 05/26/18 19:19 BUN/Creatinine Ratio 10 % 05/26/18 19:19 Glucose 106 mg/dL (75-100) H 05/26/18 19:19 POC Glucose 79 (70-105) 05/25/18 14:40 Calcium 8.3 mg/dL (8.4-10.2) L 05/26/18 19:19 Magnesium 2.50 mg/dL (1.7-2.3) H 05/24/18 23:00 Total Bilirubin 0.30 mg/dL (0.1-1.2) 05/24/18 23:00 AST 32 units/L (5-40) 05/24/18 23:00 ALT 38 units/L (7-56) 05/24/18 23:00 Alkaline Phosphatase 68 units/L (35-129) 05/24/18 23:00 Total Creatine Kinase 311 units/L (55-170) H 05/28/18 06:14 CK-MB (CK-2) 18.9 ng/mL (0.0-4.0) H 05/25/18 15:06 CK-MB (CK-2) Rel Index 2.3 (0-4) 05/25/18 15:06 Troponin T < 0.010 ng/mL (0.00-0.029) 05/25/18 15:06 Total Protein 7.5 g/dL (6.3-8.2) 05/24/18 23:00 Albumin 4.7 g/dL (3.9-5) 05/24/18 23:00 Albumin/Globulin Ratio 1.7 % 05/24/18 23:00 Urine Color Yellow (Yellow) 05/24/18 23:19 Urine Turbidity Clear (Clear) 05/24/18 23:19 Urine pH 5.0 (5.0-7.0) 05/24/18 23:19 Ur Specific [place] 1.019 (1.003-1.030) 05/24/18 23:19 Urine Protein 100 mg/dl mg/dL (Negative) 05/24/18 23:19 Urine Glucose (UA) Neg mg/dL (Negative) 05/24/18 23: Urine Ketones Neg mg/dL (Negative) 05/24/18 23:19 Urine Blood Sm (Negative) 05/24/18 23:19 Urine Nitrite Neg (Negative) 05/24/18 23:19 Urine Bilirubin Neg (Negative) 05/24/18 23:19 Urine Urobilinogen < 2.0 mg/dL (<2.0) 05/24/18 23:19 Ur Leukocyte Esterase Neg (Negative) 05/24/18 23:19 Urine WBC (Auto) 6.0 /HPF (0.0-6.0) 05/24/18 23:19 Urine RBC (Auto) 1.0 /HPF (0.0-6.0) 05/24/18 23:19 Hyaline Casts 1 /LPF 05/24/18 23:19 Urine Mucus Few /HPF 05/24/18 23:19 Salicylates 1.2 mg/dL (2.8-20.0) L 05/24/18 22:51 Urine Opiates Screen Presumptive negative 05/24/18 23:19 Urine Methadone Screen Presumptive negative 05/24/18 23:19 Acetaminophen < 5.0 ug/mL (10.0-30.0) L 05/24/18 22:51 Ur Barbiturates Screen Presumptive negative 05/24/18 23:19 Ur Phencyclidine Scrn Presumptive negative 05/24/18 23:19 Ur Amphetamines Screen Presumptive positive 05/24/18 23:19 U Benzodiazepines Scrn Presumptive positive 05/24/18 23:19 Urine Cocaine Screen Presumptive negative 05/24/18 23:19 U Marijuana (THC) Screen Presumptive negative 05/24/18 23:19 Drugs of Abuse Note Disclamer 05/24/18 23:19 Plasma/Serum Alcohol < 0.01 % (0-0.07) 05/24/18 22:51 Nutrition/Malnutrition Assess - Dietary Evaluation Nutrition/Malnutrition Findings: Nutrition Notes Start: 05/25/18 15:55 Freq: Status: Active Protocol: Document 05/27/18 15:51 RM (Rec: 05/27/18 15:55 RM [id number]) Nutrition Notes Initial or Follow up Reassessment Current Diagnosis Respiratory Failure Other Pertinent Diagnosis Hx of polysubstance abuse including methamphetamie use, AMS Current Diet No diet ordered Labs/Tests Reviewed Pertinent Medications Reviewed Height 6 ft Weight 113.398 kg [place] Body Weight (lbs) 178.0 BMI 33.9 Subjective/Other Information Pt extubated. Nurse of POC. Burn Absent Trauma Absent #1 Nutrition Diagnosis Inadequate oral intake Diagnosis Progress(for reassessment Continues documentation) Is patient on ventilator? Yes Is Patient Ambulatory and/or Out of Bed No REE-([facility]-confined to bed) 2512.668 Kcal/Kg value to use for calculation 18 Approximate Energy Requirements Using 2041 kcal/Kg Calculation Used for Recommendations Kcal/kg Additional Notes IBW: 81kg PRO: 78-97g/day (0.8-1g/kg, 97kg adjBW) Fluid: 1ml/kcal Nutrition Intervention Change Diet Order: Diet advancement Goal #1 Diet advancement Anticipated Discharge Needs: Unable to determine at this time Follow-Up By: 05/31/18 Additional Comments Follow diet advancement, PO intakes
[2018-05-28] MEDS: HEPARIN SUB-Q SCH ×2 (11:44→22:30)
[2018-05-28] MEDS: ZOLOFT PO SCH (11:50)
[2018-05-28] MEDS: KEPPRA 750 MG in NACL 0.9% 100 ML IV SCH (11:50)
--- NOTE | 2018-05-28 13:06 | Progress Note ---
Subjective - Reason for Consult Consult date: 05/28/18 Reason for consult: Psychiatry Follow-up - Chief Complaint Chief complaint: "I didn't try to kill myself" 38 y.o. white male who presented to the ER for possible overdose. Today the patient is irritable during the assessment. He stated, "I didn't try to kill myself, I had a seizure." He was asked about the pill bottles that was found around at his home, he wouldn't answer. The patient became belligerent and I the provider explained how a 1013 is placed on a patient, he the patient calmed down. He denies SI/HI's and AVHs'. He denies any side effects of his medication. Mental Status Exam - Vital signs Last Vital Signs Temp 98.2 F 05/28/18 04:00 Pulse 74 05/28/18 04:00 Resp 18 05/28/18 04:00 BP 142/83 05/28/18 04:00 Pulse Ox 97 05/28/18 04:00 - Exam Narrative exam: MSE: Appearance: in a hospital gown Behavior: regular eye contact Speech: regular rate and tone Mood: irritable Affect: congruent to mood Thought Process: circumstantial Thought Content: denies SI/HI's and AVH's Motor Activity: sitting up in bed Cognition: A/O x 3 Insight:variable Judgment: variable Assessment and Plan Impression: Hx of Depression. Substance Use DO (amphetamines). Insomnia. Today the patient is irritable during the assessment. The patient was positive for benzos. Neuro is following the patient. Recommendation/Plan: Continue 1013, gather collateral information, and Zoloft 50 mg PO daily for depression. Discussed possible suicidality/medication induced suze with the patient reference Zoloft. Dipso: Continue to assess the patient and once medically cleat, proper dispo will be determined. Staffed with Dr Rick.
[2018-05-28] MEDS: KEPPRA PO SCH (22:30)
[2018-05-29] MEDS: ZOLOFT PO SCH (09:12)
[2018-05-29] MEDS: KEPPRA PO SCH ×2 (09:12→21:29)
[2018-05-29] MEDS: HEPARIN SUB-Q SCH ×2 (09:12→21:28)
--- NOTE | 2018-05-29 10:28 | Progress Note ---
Assessment and Plan Assessment and plan: Acute respiratory failure, Was intubated, now extubated Breakthrough seizures. Patient had history of seizure last year, as per . Patient confirms he had seizure last year while in long-term was treated at [facility] in [place], [place] but not put on Anti-seizure meds continue keppra Toxic metabolic encephalopathy Drug overdose, presumed patient found with many pill bottles around Suicidal watch Polysubstance abuse. Chronic pain Full code status Still on 1013 hold Medically stable brianna discharge History Interval history: Now extubated, Gen weakness Denies being suicidal says he wants to go home Hospitalist Physical - Physical exam Narrative exam: GEN: Not in acute distress,lying in bed, obese HEENT: Normocephalic, atraumatic, Neck: supple, No JVD Lungs: Clear to auscultation, no wheeze Heart:S1 and S2 regular, no murmurs, rubs or gallop, Abd:soft, non tender, non distended, normal bowel sounds Ext: No edema, no clubbing or cyanosis Neuro: AAO x 3, no focal signs Psych: normal mood - Constitutional Vitals: Temp Pulse Resp BP Pulse Ox 97.4 F L 79 18 133/94 95 05/29/18 08:49 05/29/18 08:49 05/29/18 08:49 05/29/18 08:49 05/29/18 08:49 Results - Labs CBC & Chem 7: 05/26/18 19:19 05/26/18 19:19 Labs: Laboratory Last Values WBC 7.2 K/mm3 (4.5-11.0) 05/26/18 19: RBC 4.55 M/mm3 (3.65-5.03) 05/26/18 19:19 Hgb 14.5 gm/dl (11.8-15.2) 05/26/18 19: Hct 42.3 % (35.5-45.6) D 05/26/18 19: MCV 93 fl (84-94) 05/26/18 19:19 MCH 32 pg (28-32) 05/26/18 19:19 MCHC 34 % (32-34) 05/26/18 19:19 RDW 13.9 % (13.2-15.2) 05/26/18 19:19 Plt Count 228 K/mm3 (140-440) 05/26/18 19:19 PT 13.2 Sec. (12.2-14.9) 05/24/18 22:51 INR 0.96 (0.87-1.13) 05/24/18 22:51 POC ABG pH 7.327 (7.35-7.45) L 05/25/18 05:46 POC ABG pCO2 41.8 (35-45) 05/25/18 05:46 POC ABG pO2 161 (80-105) H 05/25/18 05:46 POC ABG HCO3 21.9 05/25/18 05:46 POC ABG Total CO2 23 05/25/18 05:46 POC ABG O2 Sat 99 05/25/18 05:46 POC ABG Base Excess -4 05/25/18 05:46 FiO2 40 % 05/25/18 05:46 Sodium 139 mmol/L (137-145) D 05/26/18 19:19 Potassium 3.9 mmol/L (3.6-5.0) 05/26/18 19:19 Chloride 100.9 mmol/L (98-107) 05/26/18 19:19 Carbon Dioxide 27 mmol/L (22-30) 05/26/18 19:19 Anion Gap 15 mmol/L 05/26/18 19:19 BUN 8 mg/dL (9-20) L 05/26/18 19:19 Creatinine 0.8 mg/dL (0.8-1.5) 05/26/18 19:19 Estimated GFR > 60 ml/min 05/26/18 19:19 BUN/Creatinine Ratio 10 % 05/26/18 19:19 Glucose 106 mg/dL (75-100) H 05/26/18 19:19 POC Glucose 79 (70-105) 05/25/18 14:40 Calcium 8.3 mg/dL (8.4-10.2) L 05/26/18 19:19 Magnesium 2.50 mg/dL (1.7-2.3) H 05/24/18 23:00 Total Bilirubin 0.30 mg/dL (0.1-1.2) 05/24/18 23:00 AST 32 units/L (5-40) 05/24/18 23:00 ALT 38 units/L (7-56) 05/24/18 23:00 Alkaline Phosphatase 68 units/L (35-129) 05/24/18 23:00 Total Creatine Kinase 311 units/L (55-170) H 05/28/18 06:14 CK-MB (CK-2) 18.9 ng/mL (0.0-4.0) H 05/25/18 15:06 CK-MB (CK-2) Rel Index 2.3 (0-4) 05/25/18 15:06 Troponin T < 0.010 ng/mL (0.00-0.029) 05/25/18 15:06 Total Protein 7.5 g/dL (6.3-8.2) 05/24/18 23:00 Albumin 4.7 g/dL (3.9-5) 05/24/18 23:00 Albumin/Globulin Ratio 1.7 % 05/24/18 23:00 Urine Color Yellow (Yellow) 05/24/18 23:19 Urine Turbidity Clear (Clear) 05/24/18 23: Urine pH 5.0 (5.0-7.0) 05/24/18 23:19 Ur Specific [place] 1.019 (1.003-1.030) 05/24/18 23:19 Urine Protein 100 mg/dl mg/dL (Negative) 05/24/18 23: Urine Glucose (UA) Neg mg/dL (Negative) 05/24/18 23: Urine Ketones Neg mg/dL (Negative) 05/24/18 23:19 Urine Blood Sm (Negative) 05/24/18 23: Urine Nitrite Neg (Negative) 05/24/18 23: Urine Bilirubin Neg (Negative) 05/24/18 23:19 Urine Urobilinogen < 2.0 mg/dL (<2.0) 05/24/18 23:19 Ur Leukocyte Esterase Neg (Negative) 05/24/18 23:19 Urine WBC (Auto) 6.0 /HPF (0.0-6.0) 05/24/18 23:19 Urine RBC (Auto) 1.0 /HPF (0.0-6.0) 05/24/18 23:19 Hyaline Casts 1 /LPF 05/24/18 23:19 Urine Mucus Few /HPF 05/24/18 23:19 Salicylates 1.2 mg/dL (2.8-20.0) L 05/24/18 22:51 Urine Opiates Screen Presumptive negative 05/24/18 23:19 Urine Methadone Screen Presumptive negative 05/24/18 23:19 Acetaminophen < 5.0 ug/mL (10.0-30.0) L 05/24/18 22:51 Ur Barbiturates Screen Presumptive negative 05/24/18 23:19 Ur Phencyclidine Scrn Presumptive negative 05/24/18 23:19 Ur Amphetamines Screen Presumptive positive 05/24/18 23:19 U Benzodiazepines Scrn Presumptive positive 05/24/18 23:19 Urine Cocaine Screen Presumptive negative 05/24/18 23:19 U Marijuana (THC) Screen Presumptive negative 05/24/18 23:19 Drugs of Abuse Note Disclamer 05/24/18 23:19 Plasma/Serum Alcohol < 0.01 % (0-0.07) 05/24/18 22:51 Nutrition/Malnutrition Assess - Dietary Evaluation Nutrition/Malnutrition Findings: Nutrition Notes Start: 05/25/18 15:55 Freq: Status: Active Protocol: Document 05/27/18 15:51 RM (Rec: 05/27/18 15:55 RM [id number]) Nutrition Notes Initial or Follow up Reassessment Current Diagnosis Respiratory Failure Other Pertinent Diagnosis Hx of polysubstance abuse including methamphetamie use, AMS Current Diet No diet ordered Labs/Tests Reviewed Pertinent Medications Reviewed Height 6 ft Weight 113.398 kg [place] Body Weight (lbs) 178.0 BMI 33.9 Subjective/Other Information Pt extubated. Nurse of POC. Burn Absent Trauma Absent #1 Nutrition Diagnosis Inadequate oral intake Diagnosis Progress(for reassessment Continues documentation) Is patient on ventilator? Yes Is Patient Ambulatory and/or Out of Bed No REE-([facility]-confined to bed) 2512.668 Kcal/Kg value to use for calculation 18 Approximate Energy Requirements Using 2041 kcal/Kg Calculation Used for Recommendations Kcal/kg Additional Notes IBW: 81kg PRO: 78-97g/day (0.8-1g/kg, 97kg adjBW) Fluid: 1ml/kcal Nutrition Intervention Change Diet Order: Diet advancement Goal #1 Diet advancement Anticipated Discharge Needs: Unable to determine at this time Follow-Up By: 05/31/18 Additional Comments Follow diet advancement, PO intakes
[2018-05-29] MEDS: TYLENOL PO PRN ×2 (16:52→21:30)
[2018-05-29] MEDS: BENADRYL IV PRN (21:29)
[2018-05-29] MEDS ORDERED: APRESOLINE IV PRN (23:02)
[2018-05-29] MEDS: NORVASC PO SCH (23:57)
[2018-05-30] MEDS: TYLENOL PO PRN ×3 (05:12→22:00)
[2018-05-30] MEDS: ZOLOFT PO SCH (09:39)
[2018-05-30] MEDS: NORVASC PO SCH (09:39)
[2018-05-30] MEDS: KEPPRA PO SCH ×2 (09:39→22:00)
[2018-05-30] MEDS: HEPARIN SUB-Q SCH ×2 (09:40→21:59)
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
--- NOTE | 2018-05-30 17:32 | Progress Note ---
Subjective - Reason for Consult Consult date: 05/30/18 Reason for consult: Psychiatric Follow-up Evaluation Mental Status Exam - Vital signs Last Vital Signs Temp 97.3 F L 05/30/18 17:00 Pulse 86 05/30/18 17:00 Resp 16 05/30/18 17:00 BP 150/91 05/30/18 17:00 Pulse Ox 92 05/30/18 17:00
[2018-05-30] MEDS: BENADRYL IV PRN (22:00)
[2018-05-30] MEDS ORDERED: NORVASC PO SCH (23:05)
[2018-05-31] MEDS: TYLENOL PO PRN (04:43)
[2018-05-31 08:27] VITALS: BP 144/99
[2018-05-31] MEDS: KEPPRA PO SCH (12:35)
[2018-05-31] MEDS: NORVASC PO SCH (12:35)
[2018-05-31] MEDS: ZOLOFT PO SCH (13:00)
[2018-05-31] MEDS: HEPARIN SUB-Q SCH (14:36)
--- NOTE | 2018-05-31 15:12 | Progress Note ---
Subjective - Reason for Consult Consult date: 05/31/18 Reason for consult: Psychiatry Follow-up - Chief Complaint Chief complaint: "Hello" 38 y.o. white male who presented to the ER for possible overdose. Today the patient is calm and cooperative during the assessment. Per collateral information from the patient's sister Oxana Salazar at [phone], she stated that her brother had a seizure prior to being brought to ER by EMS. She stated that her brother didn't try to kill himself nor has he attempted suicide in the past. The patient denies SI/HI's and AVHs'. He denies any side effects of his medication. He would like a referral to outpatient psy services once discharged. Mental Status Exam - Vital signs Last Vital Signs Temp 97.6 F 05/31/18 08:24 Pulse 104 H 05/31/18 08:24 Resp 18 05/31/18 08:24 BP 144/99 05/31/18 08:24 Pulse Ox 94 05/31/18 08:24 - Exam Narrative exam: MSE: Appearance: calm, cooperative Behavior: regular eye contact Speech: regular rate and tone Mood: "okay" Affect: congruent to mood Thought Process: linear Thought Content: denies SI/HI's and AVH's Motor Activity: sitting up in bed Cognition: A/O x 3 Insight: appropriate Judgment: appropriate Assessment and Plan Impression: Hx of Depression. Substance Use DO (amphetamines). Insomnia. Today the patient is calm and cooperative during the assessment. The patient is no threat to self. Recommendation/Plan: The patient's 1013 and will not be extended. Continue Zoloft 50 mg PO daily for depression. Discussed possible suicidality/medication induced suze with the patient reference Zoloft. Dipso: The patient can follow up with [facility] for outpatient outpatient psy services. Staffed with Dr Rick.
--- NOTE | 2018-05-31 15:13 | Discharge Summary ---
Providers - Providers Date of Admission: 05/25/18 00:28 Date of discharge: 05/31/18 Attending physician: GERSON HARP 05/24/18 22:55 Consult to Dietitian/Nutrition [CONS] Routine Physician Instructions: Reason For Exam: Reason for Consult: Evaluate nutritional intake 05/24/18 22:57 Consult to Mental Health [CONS] Urgent Reason For Exam: psych Place consult to:: campus safety officer aboriginal ceremonial celebrant Notified:: awaiting call back 05/25/18 06:00 Consult to Physician [CONS] Routine Comment: Consulting Provider: SHIVAM CERVANTES Physician Instructions: Reason For Exam: SEIZURELIKE ACTIVITY Primary care physician: PSYCHOSOCIAL REHABILITATION COUNSELOR Hospitalization Condition: Fair Hospital course: Patient is 38 yo brought in because of seizures. He was found with numerous pill bottles close to him. He was given Narcan, brought to ED, intubated and admitted. he was soon extubated, transferred to Telemetry. He was on suicidal watch, 1013 status. he denies being suicidal and evantually his 1013 was rescinded and he was discharged home om 05/31/18 Total time spent on discharge, 32 mins Disposition: DC-01 TO HOME OR SELFCARE - Discharge Diagnoses (1) Acute respiratory failure Status: Acute (2) Toxic metabolic encephalopathy Status: Acute (3) Overdose Status: Acute (4) Seizures Status: Acute (5) Acute respiratory failure Status: Acute (6) Polysubstance abuse Status: Acute Core Measure Documentation - Palliative Care Palliative Care/ Comfort Measures: Not Applicable - Core Measures Any of the following diagnoses?: none Exam - Constitutional Vitals: Temp Pulse Resp BP Pulse Ox 97.6 F 104 H 18 144/99 94 05/31/18 08:24 05/31/18 08:24 05/31/18 08:24 05/31/18 08:24 05/31/18 08:24 Plan Activity: no driving until cleared by PCP Diet: low fat, low cholesterol, low salt Additional Instructions: 1.Follow up with PCP or [facility] in 1 week. 2.Follow up at the [facility] in 1 week for outpatient psych follow up. 3.No driving for 6 months and until cleared by Physician. Follow up with: PRIMARY CARE, [Primary Care Provider] - 3-5 Days Prescriptions: amLODIPine [Norvasc] 5 mg PO QDAY #30 tablet levETIRAcetam [Keppra TAB] 750 mg PO BID #60 tablet Sertraline [Zoloft] 50 mg PO QDAY #30 tablet
== END 2018-05-31 16:50 | disposition home or self-care (01) | DRG 917 ==
LOC: ED 22:43 → CC1 05-25 00:28 → 4A 05-26 00:56
PROVIDERS: ADMIT Internal Medicine; ATTEND Internal Medicine
PROC: 4A033R1 Measurement of Arterial Saturation, Peripheral, Percutaneous Approach (ICD-10-PCS; 2018-05-24)
PROC: 0BH18EZ Insertion of Endotracheal Airway into Trachea, Via Natural or Artificial Opening Endoscopic (ICD-10-PCS; principal; 2018-05-25)
PROC: 5A1935Z Respiratory Ventilation, Less than 24 Consecutive Hours (ICD-10-PCS; 2018-05-25)
DX: T42.4X1A Poisoning by benzodiazepines, accidental (unintentional), initial encounter (principal); J96.00 Acute respiratory failure, unspecified whether with hypoxia or hypercapnia; G92 Toxic encephalopathy; G40.909 Epilepsy, unspecified, not intractable, without status epilepticus; F17.210 Nicotine dependence, cigarettes, uncomplicated; G89.29 Other chronic pain; M54.9 Dorsalgia, unspecified; F15.10 Other stimulant abuse, uncomplicated; F12.10 Cannabis abuse, uncomplicated; F32.9 Major depressive disorder, single episode, unspecified; G47.00 Insomnia, unspecified; Y92.098 Other place in other non-institutional residence as the place of occurrence of the external cause
CPT/HCPCS: 36415; 70450; 71045; 80048; 80053; 80307; 80320; 81001; 82550; 82553; 82803; 82962; 83735; 84484; 85027; 85610; 87205; 93005; 93010; 94002; 94003; 96365; 96375; 99291; G0378; G0480; J1200; J1644; J1953; J2704; J3010; J7030; J7042

== ENCOUNTER 2018-06-10 09:57 | Inpatient (IN) | payer SELFPAY ==
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
[2018-06-10 11:20] LABS: Basophils # (Auto) 0.1 K/mm3 (0.0-0.1); Basophils % (Auto) 0.6 % (0.0-1.8); Eosinophils # (Auto) 0.3 K/mm3 (0.0-0.4); Eosinophils % (Auto) 2.7 % (0.0-4.3); Hematocrit 41.2 % (35.5-45.6); Hemoglobin 13.5 gm/dl (11.8-15.2); Lymphocytes # (Auto) 1.7 K/mm3 (1.2-5.4); Lymphocytes % (Auto) 17.1 % (13.4-35.0); Mean Corpuscular HGB Conc 33 % (32-34); Mean Corpuscular Volume 93 fl (84-94); Monocytes # (Auto) 1.1 K/mm3 (0.0-0.8); Monocytes % (Auto) 10.7 % (0.0-7.3); Platelet Count 395 K/mm3 (140-440); Red Blood Count 4.45 M/mm3 (3.65-5.03); Red Cell Distribution Width 14.2 % (13.2-15.2)
[2018-06-10 11:32] LABS: INR 0.81 (0.87-1.13)
[2018-06-10 11:33] LABS: Partial Thromboplastin Time 27.7 Sec. (24.2-36.6)
[2018-06-10 11:39] LABS: Alanine Aminotransferase 24 units/L (7-56); Albumin 4.1 g/dL (3.9-5); BUN/Creatinine Ratio 16; Blood Urea Nitrogen 16 mg/dL (9-20); Calcium 8.9 mg/dL (8.4-10.2); Hemolysis Index 4
[2018-06-10] MEDS ORDERED: ATIVAN IV ONE (13:35)
[2018-06-10] MEDS ORDERED: NACL 0.9% 1000 ML 1,000 ML IV ONE (13:39)
[2018-06-10] MEDS ORDERED: ATIVAN ONE (13:40)
[2018-06-10] MEDS ORDERED: SODIUM CHLORIDE FLUSH SYRINGE 10 ML IV PRN ×4 (14:31→23:58)
[2018-06-10] MEDS ORDERED: TYLENOL PO PRN ×3 (14:31→23:58)
[2018-06-10] MEDS ORDERED: ZOFRAN IV PRN ×4 (14:31→23:58)
--- NOTE | 2018-06-10 14:37 | XRay Report ---
CHEST ONE VIEW INDICATION: Hypertension. COMPARISON: 05/26/2018. FINDINGS: Portable, single, frontal chest radiograph demonstrates limited inspiration with mild exaggerated cardiomediastinal silhouette. Grossly clear lungs. Unremarkable bones. Extrinsic EKG leads. CONCLUSION: Limited, though unremarkable chest radiograph, as described. Thank you for the opportunity to participate in this patient's care.
[2018-06-10] MEDS ORDERED: BABY ASPIRIN PO ONE (14:41)
[2018-06-10] MEDS ORDERED: HALDOL ONE (14:45)
[2018-06-10] MEDS ORDERED: BENADRYL ONE (14:45)
[2018-06-10] MEDS ORDERED: HALDOL IM ONE (14:45)
[2018-06-10] MEDS ORDERED: BENADRYL IV ONE (14:45)
[2018-06-10] MEDS ORDERED: NACL 0.9% 1000 ML 1,000 ML IV SCH (15:00)
--- NOTE | 2018-06-10 16:40 | Cat Scan Report ---
FINAL REPORT EXAM: CT HEAD/BRAIN WO CON HISTORY: AMS TECHNIQUE: CT examination of the head without IV contrast PRIORS: 05/25/2018 FINDINGS: Nonspecific large fluid level within left maxillary sinus. Scattered mucosal thickening ethmoid and s phenoid sinuses. Left frontal sinus clear. Mastoid air cells and middle ear cavities clear. Bone windows demonstrate no acute fracture. The brain is without mass, mass effect, hemorrhage, or acute infarct. There is no extra-axial intracranial bleed, brain bleed, or midline shift. The ventricles and sulci are age-appropriate. IMPRESSION: No acute CVA, intracranial bleed, or brain mass Multifocal paranasal sinus disease. Left maxillary sinus fluid level may reflect acute sinusitis. It is new from comparison exam
[2018-06-10 17:53] LABS: Bilirubin,Urine NEG (Negative); Blood,Urine NEG (Negative); Color,Urine Yellow (Yellow); Protein,Urine <15 mg/dL mg/dL (Negative); Urobilinogen,Urine < 2.0 mg/dL (<2.0)
[2018-06-10 18:00] LABS: Benzodiazepines Screen,Urine PRESUMPTIVE NEGATIVE; Cannabinoid Screen,Urine PRESUMPTIVE NEGATIVE; Cocaine Screen,Urine PRESUMPTIVE NEGATIVE; Methadone Screen,Urine PRESUMPTIVE NEGATIVE; Opiate Screen,Urine PRESUMPTIVE NEGATIVE
[2018-06-10 18:17] LABS: Amphetamine Screen,Urine PRESUMPTIVE POSITIVE
[2018-06-10] MEDS ORDERED: SODIUM CHLORIDE FLUSH SYRINGE 10 ML IV SCH ×2 (22:00)
[2018-06-10] MEDS ORDERED: CEPHULAC PR SCH (23:45)
--- NOTE | 2018-06-10 23:53 | History and Physical Report ---
History of Present Illness Date of examination: 06/10/18 Date of admission: 06/10/18 14:31 Medications and Allergies Allergies Allergy/AdvReac Type Severity Reaction Status Date / Time No Known Allergies Allergy Verified 05/24/18 23:11 Home Medications Medication Instructions Recorded Confirmed Last Taken Type Sertraline [Zoloft] 50 mg PO QDAY #30 tablet 05/31/18 06/10/18 Unknown Rx amLODIPine [Norvasc] 5 mg PO QDAY #30 tablet 05/31/18 06/10/18 Unknown Rx levETIRAcetam [Keppra TAB] 750 mg PO BID #60 tablet 05/31/18 06/10/18 Unknown Rx Active Meds: Active Medications Acetaminophen (Tylenol) 650 mg PO Q4H PRN PRN Reason: Pain MILD(1-3)/Fever >100.5/LION Acetaminophen (Tylenol) 650 mg PO Q4H PRN PRN Reason: Pain MILD(1-3)/Fever >100.5/LION Acetaminophen (Tylenol) 650 mg PO Q4H PRN PRN Reason: Pain MILD(1-3)/Fever >100.5/LION Sodium Chloride (Nacl 0.9% 1000 Ml) 1,000 mls @ 75 mls/hr IV DIRECT [facility] Stop: 06/11/18 07:00 Last Admin: 06/10/18 22:35 Dose: 75 mls/hr Documented by: Lactulose (Cephulac) gm NV Q12H [facility] Ondansetron HCl (Zofran) 4 mg IV Q8H PRN PRN Reason: Nausea And Vomiting Ondansetron HCl (Zofran) 4 mg IV Q8H PRN PRN Reason: Nausea And Vomiting Ondansetron HCl (Zofran) 4 mg IV Q8H PRN PRN Reason: Nausea And Vomiting Sodium Chloride (Sodium Chloride Flush Syringe 10 Ml) 10 ml IV BID [facility] Last Admin: 06/10/18 22:36 Dose: 10 ml Documented by: Sodium Chloride (Sodium Chloride Flush Syringe 10 Ml) 10 ml IV PRN PRN PRN Reason: LINE FLUSH Sodium Chloride (Sodium Chloride Flush Syringe 10 Ml) 10 ml IV BID [facility] Last Admin: 06/10/18 22:36 Dose: 10 ml Documented by: Sodium Chloride (Sodium Chloride Flush Syringe 10 Ml) 10 ml IV PRN PRN PRN Reason: LINE FLUSH Sodium Chloride (Sodium Chloride Flush Syringe 10 Ml) 10 ml IV BID [facility] Sodium Chloride (Sodium Chloride Flush Syringe 10 Ml) 10 ml IV PRN PRN PRN Reason: LINE FLUSH Exam - Constitutional Vitals: Temp Pulse Resp BP Pulse Ox 98.0 F 82 18 122/77 94 06/10/18 19:30 06/10/18 19:30 06/10/18 19:30 06/10/18 19:51 06/10/18 19:51 Results - Labs CBC & Chem 7: 06/10/18 10:55 06/10/18 10:55 Labs: Laboratory Last Values WBC 10.0 K/mm3 (4.5-11.0) 06/10/18 10:55 RBC 4.45 M/mm3 (3.65-5.03) 06/10/18 10:55 Hgb 13.5 gm/dl (11.8-15.2) 06/10/18 10:55 Hct 41.2 % (35.5-45.6) 06/10/18 10:55 MCV 93 fl (84-94) 06/10/18 10:55 MCH 30 pg (28-32) 06/10/18 10:55 MCHC 33 % (32-34) 06/10/18 10:55 RDW 14.2 % (13.2-15.2) 06/10/18 10:55 Plt Count 395 K/mm3 (140-440) 06/10/18 10:55 Lymph % (Auto) 17.1 % (13.4-35.0) 06/10/18 10:55 [place] % (Auto) 10.7 % (0.0-7.3) H 06/10/18 10:55 Eos % (Auto) 2.7 % (0.0-4.3) 06/10/18 10:55 Baso % (Auto) 0.6 % (0.0-1.8) 06/10/18 10:55 Lymph # 1.7 K/mm3 (1.2-5.4) 06/10/18 10:55 [place] # 1.1 K/mm3 (0.0-0.8) H 06/10/18 10:55 Eos # 0.3 K/mm3 (0.0-0.4) 06/10/18 10:55 Baso # 0.1 K/mm3 (0.0-0.1) 06/10/18 10:55 Seg Neutrophils % 68.9 % (40.0-70.0) 06/10/18 10:55 Seg Neutrophils # 6.9 K/mm3 (1.8-7.7) 06/10/18 10:55 PT 11.6 Sec. (12.2-14.9) L 06/10/18 10:55 INR 0.81 (0.87-1.13) L 06/10/18 10:55 APTT 27.7 Sec. (24.2-36.6) 06/10/18 10:55 Sodium 138 mmol/L (137-145) 06/10/18 10:55 Potassium 4.0 mmol/L (3.6-5.0) 06/10/18 10:55 Chloride 100.7 mmol/L (98-107) 06/10/18 10:55 Carbon Dioxide 24 mmol/L (22-30) 06/10/18 10:55 Anion Gap 17 mmol/L 06/10/18 10:55 BUN 16 mg/dL (9-20) 06/10/18 10:55 Creatinine 1.0 mg/dL (0.8-1.5) 06/10/18 10:55 Estimated GFR > 60 ml/min 06/10/18 10:55 BUN/Creatinine Ratio 16 % 06/10/18 10:55 Glucose 101 mg/dL (75-100) H 06/10/18 10:55 POC Glucose 118 (70-105) H 06/10/18 22:43 Calcium 8.9 mg/dL (8.4-10.2) 06/10/18 10:55 Magnesium 2.10 mg/dL (1.7-2.3) 06/10/18 10:55 Total Bilirubin 0.20 mg/dL (0.1-1.2) 06/10/18 10:55 AST 19 units/L (5-40) 06/10/18 10:55 ALT 24 units/L (7-56) 06/10/18 10:55 Alkaline Phosphatase 63 units/L (35-129) 06/10/18 10:55 Ammonia 101.0 umol/L (25-60) H 06/10/18 10:55 Total Protein 7.1 g/dL (6.3-8.2) 06/10/18 10:55 Albumin 4.1 g/dL (3.9-5) 06/10/18 10:55 Albumin/Globulin Ratio 1.4 % 06/10/18 10:55 TSH 11.160 mlU/mL (0.270-4.200) H 06/10/18 10:55 Urine Color Yellow (Yellow) 06/10/18 16:30 Urine Turbidity Clear (Clear) 06/10/18 16:30 Urine pH 5.0 (5.0-7.0) 06/10/18 16:30 Ur Specific [place] 1.018 (1.003-1.030) 06/10/18 16:30 Urine Protein <15 mg/dl mg/dL (Negative) 06/10/18 16:30 Urine Glucose (UA) Neg mg/dL (Negative) 06/10/18 16:30 Urine Ketones Neg mg/dL (Negative) 06/10/18 16:30 Urine Blood Neg (Negative) 06/10/18 16:30 Urine Nitrite Neg (Negative) 06/10/18 16:30 Urine Bilirubin Neg (Negative) 06/10/18 16:30 Urine Urobilinogen < 2.0 mg/dL (<2.0) 06/10/18 16:30 Ur Leukocyte Esterase Neg (Negative) 06/10/18 16:30 Urine WBC (Auto) 1.0 /HPF (0.0-6.0) 06/10/18 16:30 Urine RBC (Auto) 4.0 /HPF (0.0-6.0) 06/10/18 16:30 Salicylates < 0.3 mg/dL (2.8-20.0) L 06/10/18 10:55 Urine Opiates Screen Presumptive negative 06/10/18 16:30 Urine Methadone Screen Presumptive negative 06/10/18 16:30 Acetaminophen < 5.0 ug/mL (10.0-30.0) L 06/10/18 10:55 Ur Barbiturates Screen Presumptive negative 06/10/18 16:30 Ur Phencyclidine Scrn Presumptive negative 06/10/18 16:30 Ur Amphetamines Screen Presumptive positive 06/10/18 16:30 U Benzodiazepines Scrn Presumptive negative 06/10/18 16:30 Urine Cocaine Screen Presumptive negative 06/10/18 16:30 U Marijuana (THC) Screen Presumptive negative 06/10/18 16:30 Drugs of Abuse Note Disclamer 06/10/18 16:30 Plasma/Serum Alcohol < 0.01 % (0-0.07) 06/10/18 10:55
[2018-06-11 04:58] LABS: Basophils % (Auto) 0.5 % (0.0-1.8); Eosinophils # (Auto) 0.2 K/mm3 (0.0-0.4); Hematocrit 44.1 % (35.5-45.6); Hemoglobin 14.8 gm/dl (11.8-15.2); Lymphocytes % (Auto) 11.2 % (13.4-35.0); Mean Corpuscular HGB Conc 34 % (32-34); Mean Corpuscular Volume 93 fl (84-94); Monocytes # (Auto) 0.8 K/mm3 (0.0-0.8); Monocytes % (Auto) 8.8 % (0.0-7.3); Platelet Count 385 K/mm3 (140-440); Red Blood Count 4.74 M/mm3 (3.65-5.03); Red Cell Distribution Width 14.3 % (13.2-15.2)
[2018-06-11 05:20] LABS: Alanine Aminotransferase 24 units/L (7-56); Albumin 3.9 g/dL (3.9-5); BUN/Creatinine Ratio 11; Blood Urea Nitrogen 9 mg/dL (9-20); Calcium 8.5 mg/dL (8.4-10.2); Hemolysis Index 4
[2018-06-11] MEDS: CEPHULAC PO SCH ×3 (05:53→22:08)
--- NOTE | 2018-06-11 06:43 | Event Note ---
Date: 06/10/18 See H/p in reports Hepatic Encephalopathy Opiate dependence
--- NOTE | 2018-06-11 06:54 | History and Physical Report ---
CHIEF COMPLAINT: Altered sensorium. HISTORY OF PRESENT ILLNESS: A 38-year-old male with history of chronic pain and chronic opiate use, brought in for altered sensorium. The patient apparently took about 30 mg of Percocet. History is very unclear. At the time of my examination, the patient was alert and oriented. The patient was admitted 1013 by the ER physician for possible opiate overdose. No homicidal ideation. No suicidal ideation. The patient has been lethargic initially in the Emergency Room, but became more alert and oriented after a couple of hours. During my examination, the patient was alert and oriented and wanted to go home. PAST MEDICAL HISTORY: Significant for hypertension, seizure disorder, depression, chronic pain, seizures. PAST SURGICAL HISTORY: Hernia repair. SOCIAL HISTORY: Smokes a pack a day. Marijuana on a regular basis. FAMILY HISTORY: Hypertension. REVIEW OF SYSTEMS: Significant for altered sensorium initially, which is cleared over the next two hours in the Emergency Room. Chronic back pain. Otherwise, review of systems negative. PHYSICAL EXAMINATION: GENERAL: Young male, cooperative during examination. VITAL SIGNS: Blood pressure is 117/76, temperature is 98, pulse is 82, respirations are 18. HEENT: Unremarkable. Pupils equal and reactive. NECK: Supple, no lymphadenopathy, no thyromegaly. LUNGS: Clear to auscultation and percussion. Good air entry. CARDIOVASCULAR: S1, S2 heard. No gallop, no murmur, no rub. Apical impulse in left fifth intercostal space and midclavicular line. ABDOMEN: Soft and benign. No hepatosplenomegaly. No guarding, no rigidity. Hernial orifices are normal. EXTREMITIES: Good pedal pulses. No pedal edema. CENTRAL NERVOUS SYSTEM: Alert and oriented x 4, nonfocal exam. SKIN: Normal. LABORATORY DATA: Significant for white count of 10,000, H and H of 13.5 and 41.2, platelet count of 395,000. Protime is 11.6, INR is 0.81. Glucose is 101, BUN and creatinine is 16 and 1.0. Sodium is 138. TSH is 11.16. Ammonia is 101. Urine normal. Drug screen positive for amphetamines. Opiates are surprisingly negative. ASSESSMENT AND PLAN: 1. Acute encephalopathy, probably secondary to opiates and ammonia level of 101. The patient initiated on lactulose. The patient more alert and oriented. 2. Hypothyroidism. TSH is high. Check T3-T4 levels. Initiate on Synthroid as necessary. 3. Chronic pain. The patient on opiates. Opiates were not initiated. P.r.n. medications to be used. 4. Hypertension. The patient not on any blood pressure medications. We will trend the blood pressure. The patient was started on amlodipine in the Emergency Room. 5. Seizure disorder. Continue Keppra 750 twice a day. 6. Depression. Continue sertraline 50 mg once a day. 7. Questionable opiate overdose. I do not think there is any opiate overdose. The patient on 1013, mental health to clear the 1013 and possible discharge in 24-48 hours. 8. Deep venous thrombosis prophylaxis, Lovenox 30 mg subcutaneous daily and GI prophylaxis. In summary, the patient has an acute encephalopathy, which has resolved. Ammonia level is high. Opiate dependence, hypertension, seizure disorder, and depression. JOB# [id number] [place]ST[place]/ADEN
[2018-06-11 07:45] LABS: Free T4 (Free Thyroxine) 1.13 ng/dL (0.76-1.46)
[2018-06-11] MEDS ORDERED: NON-FORMULARY (Levetiracetam [Keppra Tab] 750 MG) PO SCH (10:00)
[2018-06-11] MEDS ORDERED: SODIUM CHLORIDE FLUSH SYRINGE 10 ML IV SCH (10:00)
--- NOTE | 2018-06-11 12:33 | Progress Note ---
Assessment and Plan Assessment and plan: 38M who pw ams Plan -patient was put on 1013, seen by psychiatry -UDS pos for ampetamines Diagnosis -Acute toxic encephalopathy -Meth abuse History Interval history: patient has been somnolent and sleeping all day Review of systems Constitutional: No fevers, no malaise, no joint pains CVS: No chest pain, no orthopnea, no dyspnea on exertion, no pedal edema GI: No abdominal pain, no diarrhea, no vomiting, no constipation Respiratory: No shortness of breath, no wheezing, no coughing Hospitalist Physical - Physical exam Narrative exam: General.: Appears well, no distress, nontoxic HEENT: Moist mucous membranes, extraocular muscles intact, no lymphadenopathy Neck: supple Cardiac: S1-S2 heard Lungs: clear to auscultation bilaterally Abdomen: soft , nontender, nondistended, bowel sounds positive Extremities: no edema clubbing or cyanosis Skin: no rash or lesions Neurologic: somnolent, wakes up and says two words and passes out Psych: somnolent - Constitutional Vitals: Temp Pulse Resp BP Pulse Ox 98.4 F 82 24 131/80 94 06/11/18 04:58 06/10/18 19:30 06/11/18 04:58 06/11/18 04:58 06/10/18 19:51 Results - Labs CBC & Chem 7: 06/11/18 04:11 06/11/18 04:11 Labs: Laboratory Last Values WBC 9.1 K/mm3 (4.5-11.0) 06/11/18 04:11 RBC 4.74 M/mm3 (3.65-5.03) 06/11/18 04:11 Hgb 14.8 gm/dl (11.8-15.2) 06/11/18 04:11 Hct 44.1 % (35.5-45.6) 06/11/18 04:11 MCV 93 fl (84-94) 06/11/18 04:11 MCH 31 pg (28-32) 06/11/18 04:11 MCHC 34 % (32-34) 06/11/18 04:11 RDW 14.3 % (13.2-15.2) 06/11/18 04:11 Plt Count 385 K/mm3 (140-440) 06/11/18 04:11 Lymph % (Auto) 11.2 % (13.4-35.0) L 06/11/18 04:11 [place] % (Auto) 8.8 % (0.0-7.3) H 06/11/18 04:11 Eos % (Auto) 2.0 % (0.0-4.3) 06/11/18 04:11 Baso % (Auto) 0.5 % (0.0-1.8) 06/11/18 04:11 Lymph # 1.0 K/mm3 (1.2-5.4) L 06/11/18 04:11 [place] # 0.8 K/mm3 (0.0-0.8) 06/11/18 04:11 Eos # 0.2 K/mm3 (0.0-0.4) 06/11/18 04:11 Baso # 0.0 K/mm3 (0.0-0.1) 06/11/18 04:11 Seg Neutrophils % 77.5 % (40.0-70.0) H 06/11/18 04:11 Seg Neutrophils # 7.1 K/mm3 (1.8-7.7) 06/11/18 04:11 PT 11.6 Sec. (12.2-14.9) L 06/10/18 10:55 INR 0.81 (0.87-1.13) L 06/10/18 10:55 APTT 27.7 Sec. (24.2-36.6) 06/10/18 10:55 Sodium 140 mmol/L (137-145) 06/11/18 04:11 Potassium 4.0 mmol/L (3.6-5.0) 06/11/18 04:11 Chloride 104.2 mmol/L (98-107) 06/11/18 04:11 Carbon Dioxide 25 mmol/L (22-30) 06/11/18 04:11 Anion Gap 15 mmol/L 06/11/18 04:11 BUN 9 mg/dL (9-20) 06/11/18 04:11 Creatinine 0.8 mg/dL (0.8-1.5) 06/11/18 04:11 Estimated GFR > 60 ml/min 06/11/18 04:11 BUN/Creatinine Ratio 11 % 06/11/18 04:11 Glucose 89 mg/dL (75-100) 06/11/18 04:11 POC Glucose 92 (70-105) 06/11/18 11:18 Hemoglobin A1c 6.2 % (4-6) H 06/10/18 23:59 Calcium 8.5 mg/dL (8.4-10.2) 06/11/18 04:11 Magnesium 2.10 mg/dL (1.7-2.3) 06/10/18 10:55 Total Bilirubin 0.30 mg/dL (0.1-1.2) 06/11/18 04:11 AST 21 units/L (5-40) 06/11/18 04:11 ALT 24 units/L (7-56) 06/11/18 04:11 Alkaline Phosphatase 71 units/L (35-129) 06/11/18 04:11 Ammonia 101.0 umol/L (25-60) H 06/10/18 10:55 Total Protein 7.3 g/dL (6.3-8.2) 06/11/18 04:11 Albumin 3.9 g/dL (3.9-5) 06/11/18 04:11 Albumin/Globulin Ratio 1.1 % 06/11/18 04:11 TSH 4.720 mlU/mL (0.270-4.200) H 06/11/18 06:49 Free T4 1.13 ng/dL (0.76-1.46) 06/11/18 06:49 Urine Color Yellow (Yellow) 06/10/18 16:30 Urine Turbidity Clear (Clear) 06/10/18 16:30 Urine pH 5.0 (5.0-7.0) 06/10/18 16:30 Ur Specific [place] 1.018 (1.003-1.030) 06/10/18 16:30 Urine Protein <15 mg/dl mg/dL (Negative) 06/10/18 16:30 Urine Glucose (UA) Neg mg/dL (Negative) 06/10/18 16:30 Urine Ketones Neg mg/dL (Negative) 06/10/18 16:30 Urine Blood Neg (Negative) 06/10/18 16:30 Urine Nitrite Neg (Negative) 06/10/18 16:30 Urine Bilirubin Neg (Negative) 06/10/18 16:30 Urine Urobilinogen < 2.0 mg/dL (<2.0) 06/10/18 16:30 Ur Leukocyte Esterase Neg (Negative) 06/10/18 16:30 Urine WBC (Auto) 1.0 /HPF (0.0-6.0) 06/10/18 16:30 Urine RBC (Auto) 4.0 /HPF (0.0-6.0) 06/10/18 16:30 Salicylates < 0.3 mg/dL (2.8-20.0) L 06/10/18 10:55 Urine Opiates Screen Presumptive negative 06/10/18 16:30 Urine Methadone Screen Presumptive negative 06/10/18 16:30 Acetaminophen < 5.0 ug/mL (10.0-30.0) L 06/10/18 10:55 Ur Barbiturates Screen Presumptive negative 06/10/18 16:30 Ur Phencyclidine Scrn Presumptive negative 06/10/18 16:30 Ur Amphetamines Screen Presumptive positive 06/10/18 16:30 U Benzodiazepines Scrn Presumptive negative 06/10/18 16:30 Urine Cocaine Screen Presumptive negative 06/10/18 16:30 U Marijuana (THC) Screen Presumptive negative 06/10/18 16:30 Drugs of Abuse Note Disclamer 06/10/18 16:30 Plasma/Serum Alcohol < 0.01 % (0-0.07) 06/10/18 10:55
[2018-06-11] MEDS: KEPPRA PO SCH ×2 (15:40→22:08)
[2018-06-11] MEDS: NORVASC PO SCH (15:48)
[2018-06-11] MEDS: SODIUM CHLORIDE FLUSH SYRINGE 10 ML IV SCH ×2 (15:50→22:08)
[2018-06-11] MEDS: NACL 0.9% 1000 ML 1,000 ML IV SCH (22:08)
[2018-06-12] MEDS: CEPHULAC PO SCH ×2 (10:20→23:09)
[2018-06-12] MEDS: SODIUM CHLORIDE FLUSH SYRINGE 10 ML IV SCH ×2 (10:30→23:09)
[2018-06-12] MEDS: KEPPRA PO SCH ×2 (10:30→23:07)
[2018-06-12] MEDS: NORVASC PO SCH (10:30)
--- NOTE | 2018-06-12 14:39 | Progress Note ---
Assessment and Plan Assessment and plan: 38M who pw ams. The patient has chronic pain for which he takes long-acting oxycodone and short-acting oxycodone at home. He admits that he took a total of 60 mg of oxycodone, i.e 2 30mg tablets. He presented with altered mental status and somnolence. He denies methamphetamine use. He states that he was not trying to harm himself. His back pain was so severe, that he took a second oxycodone. He did not take them at the same time. Plan -patient was put on 1013, seen by psychiatry -UDS pos for ampetamines, but negative for all opioids. The patient adamantly denies amphetamine use, and states that he takes opioids. When I reviewed his drug monitoring profile, he does have recent prescription filled for oxycodone long acting and short acting, and he has been on it for many years., I suspect that this UDS might have been an error, we'll repeat UDS, communicated with the nurse Pietro -Awaiting psychiatry evaluation Diagnosis -Acute toxic encephalopathy -Meth abuse? -opioid intoxication -Opioid dependence -Chronic pain syndrome History Interval history: Review of systems Constitutional: No fevers, no malaise, no joint pains CVS: No chest pain, no orthopnea, no dyspnea on exertion, no pedal edema GI: No abdominal pain, no diarrhea, no vomiting, no constipation Respiratory: No shortness of breath, no wheezing, no coughing Hospitalist Physical - Physical exam Narrative exam: General.: Appears well, no distress, nontoxic HEENT: Moist mucous membranes, extraocular muscles intact, no lymphadenopathy Neck: supple Cardiac: S1-S2 heard Lungs: clear to auscultation bilaterally Abdomen: soft , nontender, nondistended, bowel sounds positive Extremities: no edema clubbing or cyanosis Skin: no rash or lesions Neurologic: no gross focal deficits Psych: calm, and cooperative - Constitutional Vitals: Temp Pulse Resp BP Pulse Ox 98.5 F 72 16 150/91 97 06/12/18 00:38 06/12/18 00:37 06/11/18 22:00 06/12/18 10:30 06/12/18 00:37 Results - Labs CBC & Chem 7: 06/11/18 04:11 06/11/18 04:11 Labs: Laboratory Last Values WBC 9.1 K/mm3 (4.5-11.0) 06/11/18 04:11 RBC 4.74 M/mm3 (3.65-5.03) 06/11/18 04:11 Hgb 14.8 gm/dl (11.8-15.2) 06/11/18 04:11 Hct 44.1 % (35.5-45.6) 06/11/18 04:11 MCV 93 fl (84-94) 06/11/18 04:11 MCH 31 pg (28-32) 06/11/18 04:11 MCHC 34 % (32-34) 06/11/18 04:11 RDW 14.3 % (13.2-15.2) 06/11/18 04:11 Plt Count 385 K/mm3 (140-440) 06/11/18 04:11 Lymph % (Auto) 11.2 % (13.4-35.0) L 06/11/18 04:11 [place] % (Auto) 8.8 % (0.0-7.3) H 06/11/18 04:11 Eos % (Auto) 2.0 % (0.0-4.3) 06/11/18 04:11 Baso % (Auto) 0.5 % (0.0-1.8) 06/11/18 04:11 Lymph # 1.0 K/mm3 (1.2-5.4) L 06/11/18 04:11 [place] # 0.8 K/mm3 (0.0-0.8) 06/11/18 04:11 Eos # 0.2 K/mm3 (0.0-0.4) 06/11/18 04:11 Baso # 0.0 K/mm3 (0.0-0.1) 06/11/18 04:11 Seg Neutrophils % 77.5 % (40.0-70.0) H 06/11/18 04:11 Seg Neutrophils # 7.1 K/mm3 (1.8-7.7) 06/11/18 04:11 PT 11.6 Sec. (12.2-14.9) L 06/10/18 10:55 INR 0.81 (0.87-1.13) L 06/10/18 10:55 APTT 27.7 Sec. (24.2-36.6) 06/10/18 10:55 Sodium 140 mmol/L (137-145) 06/11/18 04:11 Potassium 4.0 mmol/L (3.6-5.0) 06/11/18 04:11 Chloride 104.2 mmol/L (98-107) 06/11/18 04:11 Carbon Dioxide 25 mmol/L (22-30) 06/11/18 04:11 Anion Gap 15 mmol/L 06/11/18 04:11 BUN 9 mg/dL (9-20) 06/11/18 04:11 Creatinine 0.8 mg/dL (0.8-1.5) 06/11/18 04:11 Estimated GFR > 60 ml/min 06/11/18 04:11 BUN/Creatinine Ratio 11 % 06/11/18 04:11 Glucose 89 mg/dL (75-100) 06/11/18 04:11 POC Glucose 81 (70-105) 06/12/18 07:43 Hemoglobin A1c 6.2 % (4-6) H 06/10/18 23:59 Calcium 8.5 mg/dL (8.4-10.2) 06/11/18 04:11 Magnesium 2.10 mg/dL (1.7-2.3) 06/10/18 10:55 Total Bilirubin 0.30 mg/dL (0.1-1.2) 06/11/18 04:11 AST 21 units/L (5-40) 06/11/18 04:11 ALT 24 units/L (7-56) 06/11/18 04:11 Alkaline Phosphatase 71 units/L (35-129) 06/11/18 04:11 Ammonia 101.0 umol/L (25-60) H 06/10/18 10:55 Total Protein 7.3 g/dL (6.3-8.2) 06/11/18 04:11 Albumin 3.9 g/dL (3.9-5) 06/11/18 04:11 Albumin/Globulin Ratio 1.1 % 06/11/18 04:11 TSH 4.720 mlU/mL (0.270-4.200) H 06/11/18 06:49 Free T4 1.13 ng/dL (0.76-1.46) 06/11/18 06:49 Urine Color Yellow (Yellow) 06/10/18 16:30 Urine Turbidity Clear (Clear) 06/10/18 16:30 Urine pH 5.0 (5.0-7.0) 06/10/18 16:30 Ur Specific [place] 1.018 (1.003-1.030) 06/10/18 16:30 Urine Protein <15 mg/dl mg/dL (Negative) 06/10/18 16:30 Urine Glucose (UA) Neg mg/dL (Negative) 06/10/18 16:30 Urine Ketones Neg mg/dL (Negative) 06/10/18 16:30 Urine Blood Neg (Negative) 06/10/18 16:30 Urine Nitrite Neg (Negative) 06/10/18 16:30 Urine Bilirubin Neg (Negative) 06/10/18 16:30 Urine Urobilinogen < 2.0 mg/dL (<2.0) 06/10/18 16:30 Ur Leukocyte Esterase Neg (Negative) 06/10/18 16:30 Urine WBC (Auto) 1.0 /HPF (0.0-6.0) 06/10/18 16:30 Urine RBC (Auto) 4.0 /HPF (0.0-6.0) 06/10/18 16:30 Salicylates < 0.3 mg/dL (2.8-20.0) L 06/10/18 10:55 Urine Opiates Screen Presumptive negative 06/10/18 16:30 Urine Methadone Screen Presumptive negative 06/10/18 16:30 Acetaminophen < 5.0 ug/mL (10.0-30.0) L 06/10/18 10:55 Ur Barbiturates Screen Presumptive negative 06/10/18 16:30 Ur Phencyclidine Scrn Presumptive negative 06/10/18 16:30 Ur Amphetamines Screen Presumptive positive 06/10/18 16:30 U Benzodiazepines Scrn Presumptive negative 06/10/18 16:30 Urine Cocaine Screen Presumptive negative 06/10/18 16:30 U Marijuana (THC) Screen Presumptive negative 06/10/18 16:30 Drugs of Abuse Note Disclamer 06/10/18 16:30 Plasma/Serum Alcohol < 0.01 % (0-0.07) 06/10/18 10:55
--- NOTE | 2018-06-12 16:10 | Consultation ---
Addendum entered and electronically signed by FITZ BUNCH NP-C 06/13/18 01:31: Consider erratic behavior is a result of drug use or withdrawal. There is concern for diversion of opiates as his UDS is negative for opiates and there is possible use of amphetamine based substances. Encephalopathy was addressed by the medical team. Behavior could be explained by encephalopathy and effects of substance use or withdrawal. There may not be an underlying psychopathology. Original Note: History of Present Illness - Reason for Consult Consult date: 06/12/18 Reason for consult: psychiatric evaluation - Chief Complaint Chief complaint: MSE: Appearance: calm, cooperative Behavior: regular eye contact Speech: regular rate and tone Mood: "okay" Affect: congruent to mood Thought Process: linear Thought Content: denies SI/HI's and AVH's Motor Activity: sitting up in bed Cognition: A/O x 3 Insight: variable Judgment: appropriate - History of Present Psychiatric Illness "I was exhausted." 38 year old WM seen for psychiatric evaluation on the medical floor. He was discharged less than 2 weeks ago. At that time he was intubated and there was concern of taking too much percocet. Today, he reports he does not need to be in the hospital. He was cooperative initially and but became agitated and threatened to have aggressive behavior if he did not get his way, which is being discharged. He did respond to redirection. His is present. She did not exp ress concerns but attempted to deescalate him. He denies suicidal or homicidal ideation. He denies confusion and attributes an change in mental status to being exhausted from walking to the hospital. He has a positive amphetamine result on his urine drug screen x 2, two days apart. He denies using methamphetaine. He also reported taking oxycontin and oxycodone. [facility] Aware database incidates he is prescribed these medications monthly. He is not positive for opiates. Medications and Allergies Allergies Allergy/AdvReac Type Severity Reaction Status Date / Time No Known Allergies Allergy Verified 05/24/18 23:11 Home Medications Medication Instructions Recorded Confirmed Last Taken Type Sertraline [Zoloft] 50 mg PO QDAY #30 tablet 05/31/18 06/10/18 Unknown Rx amLODIPine [Norvasc] 5 mg PO QDAY #30 tablet 05/31/18 06/10/18 Unknown Rx levETIRAcetam [Keppra TAB] 750 mg PO BID #60 tablet 05/31/18 06/10/18 Unknown Rx Active Meds: Active Medications Acetaminophen (Tylenol) 650 mg PO Q4H PRN PRN Reason: Pain MILD(1-3)/Fever >100.5/LION Amlodipine Besylate (Norvasc) 5 mg PO QDAY [facility] Last Admin: 06/12/18 10:30 Dose: 5 mg Documented by: Sodium Chloride (Nacl 0.9% 1000 Ml) 1,000 mls @ 75 mls/hr IV DIRECT [facility] Last Admin: 06/11/18 22:08 Dose: 75 mls/hr Documented by: Lactulose (Cephulac) 26.667 gm PO Q12HR [facility] Last Admin: 06/12/18 10:20 Dose: 26.667 gm Documented by: Levetiracetam (Keppra) 750 mg PO BID [facility] Last Admin: 06/12/18 10:30 Dose: 750 mg Documented by: Ondansetron HCl (Zofran) 4 mg IV Q8H PRN PRN Reason: Nausea And Vomiting Sodium Chloride (Sodium Chloride Flush Syringe 10 Ml) 10 ml IV BID [facility] Last Admin: 06/12/18 10:30 Dose: 10 ml Documented by: Sodium Chloride (Sodium Chloride Flush Syringe 10 Ml) 10 ml IV PRN PRN PRN Reason: LINE FLUSH Last Admin: 06/11/18 22:08 Dose: 10 ml Documented by: Past psychiatric history - Past Medical History Past Medical History: other (chronic neck and back pain) - Social History Social history: lives with family ( is . lives with sister also) Mental Status Exam - Vital signs Last Vital Signs Temp 98.5 F 06/12/18 00:38 Pulse 72 06/12/18 00:37 Resp 16 06/11/18 22:00 BP 150/91 06/12/18 10:30 Pulse Ox 97 06/12/18 00:37 Results Result Diagrams: 06/11/18 04:11 06/11/18 04:11 Abnormal lab results 06/11/18 Range/Units 16:17 POC Glucose 114 H (70-105) All other labs normal. Assessment and Plan Assessment and plan: Impression: opioid use disorder amphetamine use disorder, unspecified Recommendations: If agitation improves and behavior is appropriate, he is experiencing mental status changes which should improve over the next several days. Continue 1013 and psych will monitor daily to determine if he meets criteria for inpatient psychiatric treatment. Staffed with Dr. Bishop Swanson
[2018-06-12 16:32] LABS: Benzodiazepines Screen,Urine PRESUMPTIVE NEGATIVE; Cannabinoid Screen,Urine PRESUMPTIVE NEGATIVE; Cocaine Screen,Urine PRESUMPTIVE NEGATIVE; Methadone Screen,Urine PRESUMPTIVE NEGATIVE; Opiate Screen,Urine PRESUMPTIVE NEGATIVE
[2018-06-12] MEDS: TYLENOL PO PRN (17:04)
[2018-06-12 17:31] LABS: Amphetamine Screen,Urine PRESUMPTIVE POSITIVE
[2018-06-12] MEDS: PERCOCET 5/325 PO PRN (18:35)
--- NOTE | 2018-06-13 10:46 | Progress Note ---
Assessment and Plan Assessment and plan: 38M who pw ams. The patient has chronic pain for which he takes long-acting oxycodone and short-acting oxycodone at home. He admits that he took a total of 60 mg of oxycodone, i.e 2 30mg tablets. He presented with altered mental status and somnolence. He denies methamphetamine use. He states that he was not trying to harm himself. His back pain was so severe, that he took a second oxycodone. He did not take them at the same time. Plan -patient was put on 1013, seen by psychiatry -UDS pos for ampetamines, but negative for all opioids. The patient adamantly denies amphetamine use, and states that he takes opioids. When I reviewed his drug monitoring profile, he does have recent prescription filled for oxycodone long acting and short acting, and he has been on it for many years., repeat UDS completely negative, neg for opioids and neg for meth, which is unexpected as he is supposed to be on opiods at home - psychiatry evaluation appreciated, cont 1013 Diagnosis -Acute toxic encephalopathy -Meth abuse ruled out -opioid intoxication? -Opioid dependence -Chronic pain syndrome History Interval history: Review of systems Constitutional: No fevers, no malaise, no joint pains CVS: No chest pain, no orthopnea, no dyspnea on exertion, no pedal edema GI: No abdominal pain, no diarrhea, no vomiting, no constipation Respiratory: No shortness of breath, no wheezing, no coughing Hospitalist Physical - Physical exam Narrative exam: General.: Appears well, no distress, nontoxic HEENT: Moist mucous membranes, extraocular muscles intact, no lymphadenopathy Neck: supple Cardiac: S1-S2 heard Lungs: clear to auscultation bilaterally Abdomen: soft , nontender, nondistended, bowel sounds positive Extremities: no edema clubbing or cyanosis Skin: no rash or lesions Neurologic: no gross focal deficits Psych: calm, and cooperative - Constitutional Vitals: Temp Pulse Resp BP Pulse Ox 97.6 F 94 H 18 130/92 97 06/13/18 05:44 06/13/18 05:44 06/13/18 05:44 06/13/18 05:44 06/13/18 05:44 Results - Labs CBC & Chem 7: 06/11/18 04:11 06/11/18 04:11 Labs: Laboratory Last Values WBC 9.1 K/mm3 (4.5-11.0) 06/11/18 04:11 RBC 4.74 M/mm3 (3.65-5.03) 06/11/18 04:11 Hgb 14.8 gm/dl (11.8-15.2) 06/11/18 04:11 Hct 44.1 % (35.5-45.6) 06/11/18 04:11 MCV 93 fl (84-94) 06/11/18 04:11 MCH 31 pg (28-32) 06/11/18 04:11 MCHC 34 % (32-34) 06/11/18 04:11 RDW 14.3 % (13.2-15.2) 06/11/18 04:11 Plt Count 385 K/mm3 (140-440) 06/11/18 04:11 Lymph % (Auto) 11.2 % (13.4-35.0) L 06/11/18 04:11 [place] % (Auto) 8.8 % (0.0-7.3) H 06/11/18 04:11 Eos % (Auto) 2.0 % (0.0-4.3) 06/11/18 04:11 Baso % (Auto) 0.5 % (0.0-1.8) 06/11/18 04:11 Lymph # 1.0 K/mm3 (1.2-5.4) L 06/11/18 04:11 [place] # 0.8 K/mm3 (0.0-0.8) 06/11/18 04:11 Eos # 0.2 K/mm3 (0.0-0.4) 06/11/18 04:11 Baso # 0.0 K/mm3 (0.0-0.1) 06/11/18 04:11 Seg Neutrophils % 77.5 % (40.0-70.0) H 06/11/18 04:11 Seg Neutrophils # 7.1 K/mm3 (1.8-7.7) 06/11/18 04:11 PT 11.6 Sec. (12.2-14.9) L 06/10/18 10:55 INR 0.81 (0.87-1.13) L 06/10/18 10:55 APTT 27.7 Sec. (24.2-36.6) 06/10/18 10:55 Sodium 140 mmol/L (137-145) 06/11/18 04:11 Potassium 4.0 mmol/L (3.6-5.0) 06/11/18 04:11 Chloride 104.2 mmol/L (98-107) 06/11/18 04:11 Carbon Dioxide 25 mmol/L (22-30) 06/11/18 04:11 Anion Gap 15 mmol/L 06/11/18 04:11 BUN 9 mg/dL (9-20) 06/11/18 04:11 Creatinine 0.8 mg/dL (0.8-1.5) 06/11/18 04:11 Estimated GFR > 60 ml/min 06/11/18 04:11 BUN/Creatinine Ratio 11 % 06/11/18 04:11 Glucose 89 mg/dL (75-100) 06/11/18 04:11 POC Glucose 88 (70-105) 06/12/18 16:39 Hemoglobin A1c 6.2 % (4-6) H 06/10/18 23:59 Calcium 8.5 mg/dL (8.4-10.2) 06/11/18 04:11 Magnesium 2.10 mg/dL (1.7-2.3) 06/10/18 10:55 Total Bilirubin 0.30 mg/dL (0.1-1.2) 06/11/18 04:11 AST 21 units/L (5-40) 06/11/18 04:11 ALT 24 units/L (7-56) 06/11/18 04:11 Alkaline Phosphatase 71 units/L (35-129) 06/11/18 04:11 Ammonia 101.0 umol/L (25-60) H 06/10/18 10:55 Total Protein 7.3 g/dL (6.3-8.2) 06/11/18 04:11 Albumin 3.9 g/dL (3.9-5) 06/11/18 04:11 Albumin/Globulin Ratio 1.1 % 06/11/18 04:11 TSH 4.720 mlU/mL (0.270-4.200) H 06/11/18 06:49 Free T4 1.13 ng/dL (0.76-1.46) 06/11/18 06:49 Urine Color Yellow (Yellow) 06/10/18 16:30 Urine Turbidity Clear (Clear) 06/10/18 16:30 Urine pH 5.0 (5.0-7.0) 06/10/18 16:30 Ur Specific [place] 1.018 (1.003-1.030) 06/10/18 16:30 Urine Protein <15 mg/dl mg/dL (Negative) 06/10/18 16:30 Urine Glucose (UA) Neg mg/dL (Negative) 06/10/18 16:30 Urine Ketones Neg mg/dL (Negative) 06/10/18 16:30 Urine Blood Neg (Negative) 06/10/18 16:30 Urine Nitrite Neg (Negative) 06/10/18 16:30 Urine Bilirubin Neg (Negative) 06/10/18 16:30 Urine Urobilinogen < 2.0 mg/dL (<2.0) 06/10/18 16:30 Ur Leukocyte Esterase Neg (Negative) 06/10/18 16:30 Urine WBC (Auto) 1.0 /HPF (0.0-6.0) 06/10/18 16:30 Urine RBC (Auto) 4.0 /HPF (0.0-6.0) 06/10/18 16:30 Salicylates < 0.3 mg/dL (2.8-20.0) L 06/10/18 10:55 Urine Opiates Screen Presumptive negative 06/12/18 15:34 Urine Methadone Screen Presumptive negative 06/12/18 15:34 Acetaminophen < 5.0 ug/mL (10.0-30.0) L 06/10/18 10:55 Ur Barbiturates Screen Presumptive negative 06/12/18 15:34 Ur Phencyclidine Scrn Presumptive negative 06/12/18 15:34 Ur Amphetamines Screen Presumptive positive 06/12/18 15:34 U Benzodiazepines Scrn Presumptive negative 06/12/18 15:34 Urine Cocaine Screen Presumptive negative 06/12/18 15:34 U Marijuana (THC) Screen Presumptive negative 06/12/18 15:34 Drugs of Abuse Note Disclamer 06/12/18 15:34 Plasma/Serum Alcohol < 0.01 % (0-0.07) 06/10/18 10:55
[2018-06-13] MEDS: CEPHULAC PO SCH (10:48)
[2018-06-13] MEDS: KEPPRA PO SCH ×2 (10:50→22:35)
[2018-06-13] MEDS: SODIUM CHLORIDE FLUSH SYRINGE 10 ML IV SCH ×2 (10:50→22:35)
[2018-06-13] MEDS: NORVASC PO SCH (10:50)
[2018-06-13] MEDS: PERCOCET 5/325 PO PRN ×2 (11:13→18:26)
[2018-06-13] MEDS: TYLENOL PO PRN (17:05)
--- NOTE | 2018-06-13 18:27 | Progress Note ---
Subjective - Reason for Consult Consult date: 06/13/18 Reason for consult: follow up - Chief Complaint Chief complaint: "I'm hurting. He has bruising on his left lower abdomen and complains of pain. He has informed his nurse. He continues to state he was exhausted when he arrived to the hospital and attributes exhaustion to his presentation. He insists he came to the hospital for evaluation of back pain initially. He has an MRI scheduled for this week outpatient for his back. He adamantly denies suicidal or homicidal ideation. He is calm and cooperative today. No psychosis evident. He denies use of illicit substances. UDS was positive for amphetamines and not opioids for 2 screens, 2 days apart MSE: Appearance: calm, cooperative Behavior: regular eye contact Speech: regular rate and tone Mood: "okay" Affect: congruent to mood Thought Process: linear Thought Content: denies SI/HI's and AVH's Motor Activity: sitting in a chair Cognition: A/O x 3 Insight: variable Judgment: appropriate Mental Status Exam - Vital signs Last Vital Signs Temp 98.9 F 06/13/18 11:00 Pulse 95 H 06/13/18 11:00 Resp 18 06/13/18 11:00 BP 131/87 06/13/18 11:00 Pulse Ox 96 06/13/18 11:00 Assessment and Plan Impression: encephalopathy r/o opioid use disorder r/o amphetamine use disorder, unspecified Recommendations: If behavior remains appropriate, he will not meet inpatient criteria. Continue 1013 and psych will monitor daily to determine if he meets criteria for inpatient psychiatric treatment. He will be reevaluated in [address] Bishop Swanson
[2018-06-13] MEDS: DILAUDID IV PRN (20:19)
--- NOTE | 2018-06-13 21:46 | Cat Scan Report ---
FINAL REPORT PROCEDURE: CT ABDOMEN PELVIS W CON TECHNIQUE: Computerized axial tomography of the abdomen and pelvis was performed after the IV inject ion of iodinated nonionic contrast. HISTORY: abdominal pain COMPARISON: No prior studies are available for comparison. FINDINGS: Liver, spleen, pancreas and adrenal glands are within normal limits. Bilateral kidneys demonstrate un iform enhancement. There is mild degree prominence of the right collecting system and ureter with a 3 millimeter calculus at the right vesicoureteral junction. Urinary bladder is partially filled. There is moderate degree thickening of the bladder wall at the right vesicoureteral junction.. Aorta is of normal caliber. There is no free fluid or free air. Gallbladder is unremarkable. Small bowel loops a re within normal limits. A few colonic diverticula are noted without evidence of diverticulitis. Ther e is mild degree residual stool. Appendix is normal. Vertebral height is normal. IMPRESSION: 3 millimeter calculus right vesicoureteral junction with mild degree right hydronephrosis and hydrour eter.
--- NOTE | 2018-06-14 09:36 | Progress Note ---
Assessment and Plan Assessment and plan: 38M who pw ams. The patient has chronic pain for which he takes long-acting oxycodone and short-acting oxycodone at home. He admits that he took a total of 60 mg of oxycodone, i.e 2 30mg tablets. He presented with altered mental status and somnolence. He denies methamphetamine use. He states that he was not trying to harm himself. His back pain was so severe, that he took a second oxycodone. He did not take them at the same time. Plan -patient was put on 1013, seen by psychiatry -UDS pos for ampetamines, but negative for all opioids. The patient adamantly denies amphetamine use, and states that he takes opioids. When I reviewed his drug monitoring profile, he does have recent prescription filled for oxycodone long acting and short acting, and he has been on it for many years., repeat UDS completely negative, neg for opioids and neg for meth, which is unexpected as he is supposed to be on opiods at home - psychiatry evaluation appreciated, cont 101 -CT a/p on 06/13 confirms 3mm stone in V-U junction, IV fluids and flomax, consult Diagnosis -Acute toxic encephalopathy -Meth abuse ruled out -opioid intoxication? -Opioid dependence -Chronic pain syndrome -nephrolithiasis History Interval history: Review of systems Constitutional: No fevers, no malaise, no joint pains CVS: No chest pain, no orthopnea, no dyspnea on exertion, no pedal edema GI: c/o of abdominal pain and R flank pain Respiratory: No shortness of breath, no wheezing, no coughing Hospitalist Physical - Physical exam Narrative exam: General.: Appears well, no distress, nontoxic HEENT: Moist mucous membranes, extraocular muscles intact, no lymphadenopathy Neck: supple Cardiac: S1-S2 heard Lungs: clear to auscultation bilaterally Abdomen: soft , nontender, nondistended, bowel sounds positive Extremities: no edema clubbing or cyanosis Skin: no rash or lesions Neurologic: no gross focal deficits Psych: calm, and cooperative - Constitutional Vitals: Temp Pulse Resp BP Pulse Ox 98.1 F 93 H 17 126/76 98 06/14/18 04:32 06/14/18 04:32 06/14/18 04:32 06/14/18 04:32 06/14/18 04:32 Results - Labs CBC & Chem 7: 06/11/18 04:11 06/11/18 04:11 Labs: Laboratory Last Values WBC 9.1 K/mm3 (4.5-11.0) 06/11/18 04:11 RBC 4.74 M/mm3 (3.65-5.03) 06/11/18 04:11 Hgb 14.8 gm/dl (11.8-15.2) 06/11/18 04:11 Hct 44.1 % (35.5-45.6) 06/11/18 04:11 MCV 93 fl (84-94) 06/11/18 04:11 MCH 31 pg (28-32) 06/11/18 04:11 MCHC 34 % (32-34) 06/11/18 04:11 RDW 14.3 % (13.2-15.2) 06/11/18 04:11 Plt Count 385 K/mm3 (140-440) 06/11/18 04:11 Lymph % (Auto) 11.2 % (13.4-35.0) L 06/11/18 04:11 [place] % (Auto) 8.8 % (0.0-7.3) H 06/11/18 04:11 Eos % (Auto) 2.0 % (0.0-4.3) 06/11/18 04:11 Baso % (Auto) 0.5 % (0.0-1.8) 06/11/18 04:11 Lymph # 1.0 K/mm3 (1.2-5.4) L 06/11/18 04:11 [place] # 0.8 K/mm3 (0.0-0.8) 06/11/18 04:11 Eos # 0.2 K/mm3 (0.0-0.4) 06/11/18 04:11 Baso # 0.0 K/mm3 (0.0-0.1) 06/11/18 04:11 Seg Neutrophils % 77.5 % (40.0-70.0) H 06/11/18 04:11 Seg Neutrophils # 7.1 K/mm3 (1.8-7.7) 06/11/18 04:11 PT 11.6 Sec. (12.2-14.9) L 06/10/18 10:55 INR 0.81 (0.87-1.13) L 06/10/18 10:55 APTT 27.7 Sec. (24.2-36.6) 06/10/18 10:55 Sodium 140 mmol/L (137-145) 06/11/18 04:11 Potassium 4.0 mmol/L (3.6-5.0) 06/11/18 04:11 Chloride 104.2 mmol/L (98-107) 06/11/18 04:11 Carbon Dioxide 25 mmol/L (22-30) 06/11/18 04:11 Anion Gap 15 mmol/L 06/11/18 04:11 BUN 9 mg/dL (9-20) 06/11/18 04:11 Creatinine 0.8 mg/dL (0.8-1.5) 06/11/18 04:11 Estimated GFR > 60 ml/min 06/11/18 04:11 BUN/Creatinine Ratio 11 % 06/11/18 04:11 Glucose 89 mg/dL (75-100) 06/11/18 04:11 POC Glucose 88 (70-105) 06/12/18 16:39 Hemoglobin A1c 6.2 % (4-6) H 06/10/18 23:59 Calcium 8.5 mg/dL (8.4-10.2) 06/11/18 04:11 Magnesium 2.10 mg/dL (1.7-2.3) 06/10/18 10:55 Total Bilirubin 0.30 mg/dL (0.1-1.2) 06/11/18 04:11 AST 21 units/L (5-40) 06/11/18 04:11 ALT 24 units/L (7-56) 06/11/18 04:11 Alkaline Phosphatase 71 units/L (35-129) 06/11/18 04:11 Ammonia 101.0 umol/L (25-60) H 06/10/18 10:55 Total Protein 7.3 g/dL (6.3-8.2) 06/11/18 04:11 Albumin 3.9 g/dL (3.9-5) 06/11/18 04:11 Albumin/Globulin Ratio 1.1 % 06/11/18 04:11 TSH 4.720 mlU/mL (0.270-4.200) H 06/11/18 06:49 Free T4 1.13 ng/dL (0.76-1.46) 06/11/18 06:49 Urine Color Yellow (Yellow) 06/10/18 16:30 Urine Turbidity Clear (Clear) 06/10/18 16:30 Urine pH 5.0 (5.0-7.0) 06/10/18 16:30 Ur Specific [place] 1.018 (1.003-1.030) 06/10/18 16:30 Urine Protein <15 mg/dl mg/dL (Negative) 06/10/18 16:30 Urine Glucose (UA) Neg mg/dL (Negative) 06/10/18 16:30 Urine Ketones Neg mg/dL (Negative) 06/10/18 16:30 Urine Blood Neg (Negative) 06/10/18 16:30 Urine Nitrite Neg (Negative) 06/10/18 16:30 Urine Bilirubin Neg (Negative) 06/10/18 16:30 Urine Urobilinogen < 2.0 mg/dL (<2.0) 06/10/18 16:30 Ur Leukocyte Esterase Neg (Negative) 06/10/18 16:30 Urine WBC (Auto) 1.0 /HPF (0.0-6.0) 06/10/18 16:30 Urine RBC (Auto) 4.0 /HPF (0.0-6.0) 06/10/18 16:30 Salicylates < 0.3 mg/dL (2.8-20.0) L 06/10/18 10:55 Urine Opiates Screen Presumptive negative 06/12/18 15:34 Urine Methadone Screen Presumptive negative 06/12/18 15:34 Acetaminophen < 5.0 ug/mL (10.0-30.0) L 06/10/18 10:55 Ur Barbiturates Screen Presumptive negative 06/12/18 15:34 Ur Phencyclidine Scrn Presumptive negative 06/12/18 15:34 Ur Amphetamines Screen Presumptive positive 06/12/18 15:34 U Benzodiazepines Scrn Presumptive negative 06/12/18 15:34 Urine Cocaine Screen Presumptive negative 06/12/18 15:34 U Marijuana (THC) Screen Presumptive negative 06/12/18 15:34 Drugs of Abuse Note Disclamer 06/12/18 15:34 Plasma/Serum Alcohol < 0.01 % (0-0.07) 06/10/18 10:55
[2018-06-14] MEDS: DILAUDID IV PRN ×3 (09:51→19:35)
[2018-06-14] MEDS: NORVASC PO SCH (09:52)
[2018-06-14] MEDS: KEPPRA PO SCH ×2 (09:52→22:18)
[2018-06-14] MEDS: FLOMAX PO SCH (09:53)
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
[2018-06-14] MEDS: SODIUM CHLORIDE FLUSH SYRINGE 10 ML IV SCH ×2 (14:23→22:19)
--- NOTE | 2018-06-14 14:55 | Progress Note ---
Assessment and Plan still with pain all options offered npo needs stone ext Subjective Date of service: 06/14/18 Principal diagnosis: stone Objective - Constitutional Vitals: Vital Signs - 12hr 06/14/18 06/14/18 04:32 13:09 Temperature 98.1 F 97.4 F L Pulse Rate 93 H 100 H Respiratory 17 20 Rate Blood Pressure 126/76 126/65 O2 Sat by Pulse 98 94 Oximetry General appearance: Present: no acute distress - Neck Neck: supple - Respiratory Respiratory effort: normal Extremities: no ischemia - Gastrointestinal General gastrointestinal: Present: soft, tender Rectal Exam: normal exam-external/orifice - Genitourinary Male genitourinary: normal - Labs CBC & Chem 7: 06/11/18 04:11 06/11/18 04:11 Medications & Allergies - Medications Allergies/Adverse Reactions: Allergies No Known Allergies Allergy (Verified 05/24/18 23:11) Home Medications: Home Medications Medication Instructions Recorded Confirmed Last Taken Type Sertraline [Zoloft] 50 mg PO QDAY #30 tablet 05/31/18 06/10/18 Unknown Rx amLODIPine [Norvasc] 5 mg PO QDAY #30 tablet 05/31/18 06/10/18 Unknown Rx levETIRAcetam [Keppra TAB] 750 mg PO BID #60 tablet 05/31/18 06/10/18 Unknown Rx Active Medications: Generic Name Dose Route Start Last Admin Trade Name Freq PRN Reason Stop Dose Admin Acetaminophen 650 mg 06/10/18 23:42 06/13/18 17:05 Tylenol PO 650 mg Q4H PRN Administration Pain MILD(1-3)/Fever >100.5/LION Amlodipine Besylate 5 mg 06/11/18 10:00 06/14/18 09:52 Norvasc PO 5 mg QDAY TALIB Administration Hydromorphone HCl 0.5 mg 06/13/18 20:06 06/14/18 14:20 Dilaudid IV 0.5 mg Q4H PRN Administration Pain , Severe (7-10) Sodium Chloride 1,000 mls @ 75 mls/hr 06/11/18 17:00 06/11/18 22:08 Nacl 0.9% 1000 Ml IV 75 mls/hr DIRECT TALIB Administration Levetiracetam 750 mg 06/11/18 10:00 06/14/18 09:52 Keppra PO 750 mg BID TALIB Administration Ondansetron HCl 4 mg 06/10/18 23:42 Zofran IV Q8H PRN Nausea And Vomiting Oxycodone HCl 10 mg 06/13/18 19:48 Roxicodone PO Q6H PRN Pain, Moderate (4-6) Sodium Chloride 10 ml 06/11/18 10:00 06/14/18 14:23 Sodium Chloride Flush Syringe 10 Ml IV 10 ml BID TALIB Administration Sodium Chloride 10 ml 06/10/18 23:42 06/11/18 22:08 Sodium Chloride Flush Syringe 10 Ml IV 10 ml PRN PRN Administration LINE FLUSH Tamsulosin HCl 0.4 mg 06/14/18 10:00 06/14/18 09:53 Flomax PO 0.4 mg QDAY TALIB Administration
--- NOTE | 2018-06-14 16:58 | XRay Report ---
FINAL REPORT EXAM: XRAY LUMBAR LIMITED HISTORY: back pain TECHNIQUE: AP and radiographs of the lumbar spine. PRIORS: None. FINDINGS: There are five lumbar type vertebral bodies. Normal alignment. No compression fracture. The disc spaces are maintained. The paravertebral soft tissues are normal. IMPRESSION: Normal lumbar spine.
--- NOTE | 2018-06-14 19:18 | XRay Report ---
FINAL REPORT EXAM: XRAY T-SPINE 2 VIEWS HISTORY: back pain TECHNIQUE: AP and lateral radiographs of the thoracic spine. PRIORS: None. FINDINGS: Normal alignment. There is mild loss of anterior height of the T4, T10, T11 and T12 vertebral bodies. Mild anterior osteophyte formations are seen in the thoracic spine. The paravertebral soft tissues are normal. IMPRESSION: 1. Mild loss of anterior height of the T4 and T10 through T12 vertebral bodies may represent chronic compression fractures versus physiologic wedging. 2. Mild degenerative spondylosis of the thoracic spine.
[2018-06-14] MEDS: ROXICODONE PO PRN (22:18)
--- NOTE | 2018-06-14 22:58 | Consultation ---
HISTORY OF PRESENT ILLNESS: The patient is a 38-year-old gentleman who presents with a right distal ureteral stone. He was admitted a couple days ago. He had opioid dependence, encephalopathy, and a distal stone. PAST MEDICAL HISTORY: Denies history of stones. History of opioid abuse. Hypertension, seizures. ALLERGIES: Negative. MEDICATIONS: Amlodipine, Keppra, and Zoloft. PAST SURGICAL HISTORY: Denied surgery. REVIEW OF SYSTEMS: As mentioned above with right flank pain. PHYSICAL EXAMINATION: GENERAL: He is awake. He is in no distress. Mild discomfort. He is significantly overweight, likely obese. ABDOMEN: Soft, nondistended with mild discomfort in right flank. GENITALIA: Testes descended bilaterally. RECTAL: Digital rectal exam was not done. He is 38 years of age. IMPRESSION: Right distal ureteral stone 3 mm. I offered to have him stay on Flomax. He still has moderate pain. He said he has had this for 1-2 weeks. He wanted taken care of. He will be n.p.o. We will try to get the stone out. JOB# [id number] BMSydney/NTS
[2018-06-15] MEDS: NACL 0.9% 1000 ML 1,000 ML IV SCH (02:28)
[2018-06-15] MEDS: DILAUDID IV PRN ×2 (07:55→13:54)
[2018-06-15] MEDS ORDERED: VERSED IV NR (09:43)
[2018-06-15] MEDS ORDERED: LACTATED RINGERS 1,000 ML IV SCH (10:00)
[2018-06-15] MEDS ORDERED: DILAUDID IV PRN (10:01)
--- NOTE | 2018-06-15 10:01 | Anesthesia Day of Surgery ---
Anesthesia Day of Surgery - Day of Surgery Patient Examined: Yes Patient H&P Reviewed: Yes Patient is NPO: Yes
--- NOTE | 2018-06-15 10:01 | Anesthesia Consultation ---
Anesthesia Consult and Med Hx Date of service: 06/15/18 - Airway Anesthetic Teeth Evaluation: Good ROM Head & Neck: Adequate Mental/Hyoid Distance: Inadequate (<4 FBs) Mallampati Class: Class IV Intubation Access Assessment: Possibly Difficult - Pulmonary Exam CTA: Yes - Cardiac Exam Cardiac Exam: RRR - Pre-Operative Health Status ASA Pre-Surgery Classification: ASA3 Proposed Anesthetic Plan: General - Pulmonary Hx Smoking: Yes (2PPD) Hx Asthma: No Hx Respiratory Symptoms: No COPD: No - Cardiovascular System Hx Hypertension: Yes Hx Heart Attack/AMI: No Hx Percutaneous Transluminal Coronary Angioplasty (PTCA): No Hx Cardia Arrhythmia: No - Central Nervous System Hx Seizures: Yes (last dose keppra 06/14/18 PM) CVA: No Hx Back Pain: Yes (w/ chronic opioid use) Hx Psychiatric Problems: Yes (recent 1013 psych hold this admission) - Gastrointestinal Hx Gastroesophageal Reflux Disease: No - Endocrine Hx Renal Disease: No Hx Liver Disease: No (normal liver profile however elevated ammonia on admission) Hx Insulin Dependent Diabetes: No Hx Non-Insulin Dependent Diabetes: No Hx Thyroid Disease: No - Hematic Hx Anemia: No - Other Systems Hx Substance Use: Yes (UDS pos for amphetamines though patient denies) Hx Obesity: Yes - Additional Comments Anesthesia Medical History Comments: No hx anesthetic complications. 1013 psych hold previously rescinded.
[2018-06-15] MEDS ORDERED: ANCEF/STERILE WATER 2 GM/20 ML IV NR (10:05)
[2018-06-15] MEDS ORDERED: DIPRIVAN 10 MG/ML IV ONE (10:36)
[2018-06-15] MEDS ORDERED: SUBLIMAZE ONE (10:36)
[2018-06-15] MEDS ORDERED: XYLOCAINE MPF 2% ONE (10:36)
[2018-06-15] MEDS ORDERED: ROBINUL ONE (11:10)
--- NOTE | 2018-06-15 11:14 | Progress Note ---
Assessment and Plan still pain want cysto \informed consent Subjective Date of service: 06/15/18 Principal diagnosis: stone Objective - Constitutional Vitals: Vital Signs - 12hr 06/15/18 06/15/18 06/15/18 04:59 09:47 10:17 Temperature 97.3 F L 98.1 F 98.1 F Pulse Rate 77 87 87 Respiratory 16 18 18 Rate Blood Pressure 118/73 139/88 139/88 O2 Sat by Pulse 97 99 99 Oximetry General appearance: Present: no acute distress, mild distress Extremities: no ischemia - Gastrointestinal General gastrointestinal: Present: tender - Labs CBC & Chem 7: 06/11/18 04:11 06/11/18 04:11 Medications & Allergies - Medications Allergies/Adverse Reactions: Allergies No Known Allergies Allergy (Verified 05/24/18 23:11) Home Medications: Home Medications Medication Instructions Recorded Confirmed Last Taken Type Sertraline [Zoloft] 50 mg PO QDAY #30 tablet 05/31/18 06/10/18 Unknown Rx amLODIPine [Norvasc] 5 mg PO QDAY #30 tablet 05/31/18 06/10/18 Unknown Rx levETIRAcetam [Keppra TAB] 750 mg PO BID #60 tablet 05/31/18 06/10/18 Unknown Rx Active Medications: Generic Name Dose Route Start Last Admin Trade Name Freq PRN Reason Stop Dose Admin Acetaminophen 650 mg 06/10/18 23:42 06/13/18 17:05 Tylenol PO 650 mg Q4H PRN Administration Pain MILD(1-3)/Fever >100.5/LION Amlodipine Besylate 5 mg 06/11/18 10:00 06/14/18 09:52 Norvasc PO 5 mg QDAY TALIB Administration Cefazolin Sodium 2 gm 06/15/18 10:05 Ancef/Sterile Water 2 Gm/20 Ml IV 06/15/18 23:59 PREOP NR Hydromorphone HCl 0.5 mg 06/13/18 20:06 06/15/18 07:55 Dilaudid IV 0.5 mg Q4H PRN Administration Pain , Severe (7-10) Hydromorphone HCl 0.25 mg 06/15/18 10:01 Dilaudid IV 06/15/18 23:59 Q10MIN PRN Pain, Moderate (4-6) Sodium Chloride 1,000 mls @ 75 mls/hr 06/11/18 17:00 06/15/18 02:28 Nacl 0.9% 1000 Ml IV 75 mls/hr DIRECT TALIB Administration Lactated Ringer's 1,000 mls @ 75 mls/hr 06/15/18 10:00 06/15/18 09:46 Lactated Ringers IV 75 mls/hr DIRECT TALIB Administration Levetiracetam 750 mg 06/11/18 10:00 06/14/18 22:18 Keppra PO 750 mg BID TALIB Administration Midazolam HCl 2 mg 06/15/18 09:43 06/15/18 10:56 Versed IV 06/15/18 23:59 2 mg PREOP NR Administration Ondansetron HCl 4 mg 06/10/18 23:42 06/15/18 07:56 Zofran IV 4 mg Q8H PRN Administration Nausea And Vomiting Oxycodone HCl 10 mg 06/13/18 19:48 06/14/18 22:18 Roxicodone PO 10 mg Q6H PRN Administration Pain, Moderate (4-6) Sodium Chloride 10 ml 06/11/18 10:00 06/14/18 22:19 Sodium Chloride Flush Syringe 10 Ml IV 10 ml BID TALIB Administration Sodium Chloride 10 ml 06/10/18 23:42 06/11/18 22:08 Sodium Chloride Flush Syringe 10 Ml IV 10 ml PRN PRN Administration LINE FLUSH Tamsulosin HCl 0.4 mg 06/14/18 10:00 06/14/18 09:53 Flomax PO 0.4 mg QDAY TALIB Administration
[2018-06-15] MEDS ORDERED: OMNIPAQUE 300 MG/50 ML (CATH LAB) IV ONE (11:18)
[2018-06-15] MEDS ORDERED: NACL 0.9% IR ONE (11:18)
[2018-06-15] MEDS ORDERED: ZOFRAN ONE (11:28)
--- NOTE | 2018-06-15 11:29 | Post Operative Note ---
Date of procedure: 06/15/18 Pre-op diagnosis: r uvj stone Post-op diagnosis: same Findings: as above Procedure: cysto rpg ureteroscopy stone extr Anesthesia: GETA Surgeon: ROSAURA SALCEDO Estimated blood loss: minimal Condition: stable
[2018-06-15] MEDS ORDERED: NEO SYNEPHRINE/NS Syringe(OR USE) IV ONE (12:01)
--- NOTE | 2018-06-15 12:13 | Operative Report ---
PREOPERATIVE DIAGNOSIS: Right ureteral stone with impaction at the orifice. POSTOPERATIVE DIAGNOSIS: Right ureteral stone with impaction at the orifice. PROCEDURE: Cystoscopy, right retrograde, right ureteral balloon dilatation, ureteroscopy, stone extraction. SURGEON: Masoud Grimaldo MD ANESTHESIA: General. FINDINGS: This is a gentleman with persistent right flank pain. He is yet to pass the stone. He had moderate pain yesterday. He now presents for treatment. DESCRIPTION OF PROCEDURE: The patient was brought to the operating room and placed on the operating table. Following induction of anesthesia, placed in lithotomy position, prepped and draped in usual sterile fashion. Cystourethroscopy showed a lot of edema around the orifice. Retrograde showed what looked to be a small filling defect. A wire coiled in the kidney. Balloon dilatation was carried out. The stone was disengaged from the epithelium and moved somewhat proximal. We then grabbed it with a 3-prong grasper and it was extracted. The patient tolerated the procedure well. A double J coiled in the kidney and bladder. We put a string on the penis. He was brought to recovery in stable condition to be discharged later today. JOB# [id number] DONNELL/ADEN
--- NOTE | 2018-06-15 12:35 | Fluoroscopy Report ---
FLUOROSCOPY RETROGRADE UROGRAPHY: FLUOROSCOPY URETER/NEPHROSTOMY DILATATION RIGHT: HISTORY: Right ureteral stone. FINDINGS: Fluoroscopy was provided by radiology during retrograde urography by the urologist. 9 fluoroscopic images were captured. The images demonstrate a small filling defect in the distal right ureter consistent with a stone. The stone was removed with a grasper. Balloon dilatation of the right ureter was performed. A right ureteral stent was placed which adequately drains the right collecting system on the final image. No images of the left collecting system were saved. Please correlate with the procedural report if needed. IMPRESSION: Distal right ureteral stone removal. Right ureteral stent placement.
--- NOTE | 2018-06-15 12:59 | Post Anesthesia Evaluation ---
- Post Anesthesia Evaluation Patient Participated: Yes Airway Patent: Yes Stable Respiratory Function: Yes Nausea/Vomiting: No Temp > 96.8F: Yes Pain Manageable: Yes Adequeate Hydration: Yes Anesthesia Complications: No
[2018-06-15] MEDS: KEPPRA PO SCH (14:05)
[2018-06-15] MEDS: FLOMAX PO SCH (14:06)
[2018-06-15] MEDS: NORVASC PO SCH (14:06)
[2018-06-15] MEDS: SODIUM CHLORIDE FLUSH SYRINGE 10 ML IV SCH (14:08)
--- NOTE | 2018-06-15 15:03 | Progress Note ---
Assessment and Plan Assessment and plan: 38M who pw ams. The patient has chronic pain for which he takes long-acting oxycodone and short-acting oxycodone at home. He admits that he took a total of 60 mg of oxycodone, i.e 2 30mg tablets. He presented with altered mental status and somnolence. He denies methamphetamine use. He states that he was not trying to harm himself. His back pain was so severe, that he took a second oxycodone. He did not take them at the same time. Plan -patient was put on 101, seen by psychiatry -UDS pos for ampetamines, but negative for all opioids. The patient adamantly denies amphetamine use, and states that he takes opioids. When I reviewed his drug monitoring profile, he does have recent prescription filled for oxycodone long acting and short acting, and he has been on it for many years., repeat UDS completely negative, neg for opioids and neg for meth, which is unexpected as he is supposed to be on opiods at home; apparently he has had the same issue in the past with his career services officer, his UDS are usually negative, or only faintly positive for opioids even though he takes them for over 10 years. Must be idiosyncratic to his metabolism. - psychiatry evaluation appreciated, cont 1013 -CT a/p on 06/13 confirms 3mm stone in V-U junction, IV fluids and flomax, consult, for cysto and stone removal today -cont pain meds for OA of spine Diagnosis -Acute toxic encephalopathy -Meth abuse ruled out -opioid intoxication? -Opioid dependence -Chronic pain syndrome -nephrolithiasis T spine DJD History Interval history: Review of systems Constitutional: No fevers, no malaise, no joint pains CVS: No chest pain, no orthopnea, no dyspnea on exertion, no pedal edema GI: c/o of abdominal pain and R flank pain Respiratory: No shortness of breath, no wheezing, no coughing Hospitalist Physical - Physical exam Narrative exam: General.: Appears well, no distress, nontoxic HEENT: Moist mucous membranes, extraocular muscles intact, no lymphadenopathy Neck: supple Cardiac: S1-S2 heard Lungs: clear to auscultation bilaterally Abdomen: soft , nontender, nondistended, bowel sounds positive Extremities: no edema clubbing or cyanosis Skin: no rash or lesions Neurologic: no gross focal deficits Psych: calm, and cooperative - Constitutional Vitals: Temp Pulse Resp BP Pulse Ox 97.9 F 100 H 16 125/84 99 06/15/18 13:21 06/15/18 13:21 06/15/18 13:21 06/15/18 13:21 06/15/18 13:21 General appearance: Present: no acute distress, mild distress Results - Labs CBC & Chem 7: 06/11/18 04:11 06/11/18 04:11 Labs: Laboratory Last Values WBC 9.1 K/mm3 (4.5-11.0) 06/11/18 04:11 RBC 4.74 M/mm3 (3.65-5.03) 06/11/18 04:11 Hgb 14.8 gm/dl (11.8-15.2) 06/11/18 04:11 Hct 44.1 % (35.5-45.6) 06/11/18 04:11 MCV 93 fl (84-94) 06/11/18 04:11 MCH 31 pg (28-32) 06/11/18 04:11 MCHC 34 % (32-34) 06/11/18 04:11 RDW 14.3 % (13.2-15.2) 06/11/18 04:11 Plt Count 385 K/mm3 (140-440) 06/11/18 04:11 Lymph % (Auto) 11.2 % (13.4-35.0) L 06/11/18 04:11 [place] % (Auto) 8.8 % (0.0-7.3) H 06/11/18 04:11 Eos % (Auto) 2.0 % (0.0-4.3) 06/11/18 04:11 Baso % (Auto) 0.5 % (0.0-1.8) 06/11/18 04:11 Lymph # 1.0 K/mm3 (1.2-5.4) L 06/11/18 04:11 [place] # 0.8 K/mm3 (0.0-0.8) 06/11/18 04:11 Eos # 0.2 K/mm3 (0.0-0.4) 06/11/18 04:11 Baso # 0.0 K/mm3 (0.0-0.1) 06/11/18 04:11 Seg Neutrophils % 77.5 % (40.0-70.0) H 06/11/18 04:11 Seg Neutrophils # 7.1 K/mm3 (1.8-7.7) 06/11/18 04:11 PT 11.6 Sec. (12.2-14.9) L 06/10/18 10:55 INR 0.81 (0.87-1.13) L 06/10/18 10:55 APTT 27.7 Sec. (24.2-36.6) 06/10/18 10:55 Sodium 140 mmol/L (137-145) 06/11/18 04:11 Potassium 4.0 mmol/L (3.6-5.0) 06/11/18 04:11 Chloride 104.2 mmol/L (98-107) 06/11/18 04:11 Carbon Dioxide 25 mmol/L (22-30) 06/11/18 04:11 Anion Gap 15 mmol/L 06/11/18 04:11 BUN 9 mg/dL (9-20) 06/11/18 04:11 Creatinine 0.8 mg/dL (0.8-1.5) 06/11/18 04:11 Estimated GFR > 60 ml/min 06/11/18 04:11 BUN/Creatinine Ratio 11 % 06/11/18 04:11 Glucose 89 mg/dL (75-100) 06/11/18 04:11 POC Glucose 88 (70-105) 06/12/18 16:39 Hemoglobin A1c 6.2 % (4-6) H 06/10/18 23:59 Calcium 8.5 mg/dL (8.4-10.2) 06/11/18 04:11 Magnesium 2.10 mg/dL (1.7-2.3) 06/10/18 10:55 Total Bilirubin 0.30 mg/dL (0.1-1.2) 06/11/18 04:11 AST 21 units/L (5-40) 06/11/18 04:11 ALT 24 units/L (7-56) 06/11/18 04:11 Alkaline Phosphatase 71 units/L (35-129) 06/11/18 04:11 Ammonia 101.0 umol/L (25-60) H 06/10/18 10:55 Total Protein 7.3 g/dL (6.3-8.2) 06/11/18 04:11 Albumin 3.9 g/dL (3.9-5) 06/11/18 04:11 Albumin/Globulin Ratio 1.1 % 06/11/18 04:11 TSH 4.720 mlU/mL (0.270-4.200) H 06/11/18 06:49 Free T4 1.13 ng/dL (0.76-1.46) 06/11/18 06:49 Urine Color Yellow (Yellow) 06/10/18 16:30 Urine Turbidity Clear (Clear) 06/10/18 16:30 Urine pH 5.0 (5.0-7.0) 06/10/18 16:30 Ur Specific [place] 1.018 (1.003-1.030) 06/10/18 16:30 Urine Protein <15 mg/dl mg/dL (Negative) 06/10/18 16:30 Urine Glucose (UA) Neg mg/dL (Negative) 06/10/18 16:30 Urine Ketones Neg mg/dL (Negative) 06/10/18 16:30 Urine Blood Neg (Negative) 06/10/18 16:30 Urine Nitrite Neg (Negative) 06/10/18 16:30 Urine Bilirubin Neg (Negative) 06/10/18 16:30 Urine Urobilinogen < 2.0 mg/dL (<2.0) 06/10/18 16:30 Ur Leukocyte Esterase Neg (Negative) 06/10/18 16:30 Urine WBC (Auto) 1.0 /HPF (0.0-6.0) 06/10/18 16:30 Urine RBC (Auto) 4.0 /HPF (0.0-6.0) 06/10/18 16:30 Salicylates < 0.3 mg/dL (2.8-20.0) L 06/10/18 10:55 Urine Opiates Screen Presumptive negative 06/12/18 15:34 Urine Methadone Screen Presumptive negative 06/12/18 15:34 Acetaminophen < 5.0 ug/mL (10.0-30.0) L 06/10/18 10:55 Ur Barbiturates Screen Presumptive negative 06/12/18 15:34 Ur Phencyclidine Scrn Presumptive negative 06/12/18 15:34 Ur Amphetamines Screen Presumptive positive 06/12/18 15:34 U Benzodiazepines Scrn Presumptive negative 06/12/18 15:34 Urine Cocaine Screen Presumptive negative 06/12/18 15:34 U Marijuana (THC) Screen Presumptive negative 06/12/18 15:34 Drugs of Abuse Note Disclamer 06/12/18 15:34 Plasma/Serum Alcohol < 0.01 % (0-0.07) 06/10/18 10:55
--- NOTE | 2018-06-15 15:39 | Discharge Summary ---
Providers - Providers Date of Admission: 06/10/18 14:31 Attending physician: MARIAH RING MD 06/10/18 Consult to Case Management [CONS] Routine Services Needed at Discharge: Home Health Services Notified:: copy left for cm 06/10/18 18:11 Consult to Mental Health [CONS] Urgent Reason For Exam: [address] consult to:: Mental Health Notified:: yes 06/14/18 09:35 Consult to Physician [CONS] Routine Comment: Consulting Provider: ROSAURA SALCEDO Physician Instructions: Reason For Exam: 3mm Stone in V-U jx Primary care physician: MARTITA RODRIGUEZ Hospitalization Condition: Stable Hospital course: 38M who pw ams. The patient has chronic pain for which he takes long-acting oxycodone and short-acting oxycodone at home. He admits that he took a total of 60 mg of oxycodone, i.e 2 30mg tablets. He presented with altered mental status and somnolence. He denies methamphetamine use. He states that he was not trying to harm himself. His back pain was so severe, that he took a second oxycodone. He did not take them at the same time. Hospital course -patient was put on 1013, seen by psychiatry, he was deemed not a risk to himself or others, and 1013 was discontinued -UDS pos for ampetamines, but negative for all opioids. The patient adamantly denies amphetamine use, and states that he takes opioids. When I reviewed his drug monitoring profile, he does have recent prescription filled for oxycodone long acting and short acting, and he has been on it for many years., repeat UDS completely negative, neg for opioids and neg for meth, which is unexpected as he is supposed to be on opiods at home; apparently he has had the same issue in the past with his radiation officer, his UDS are usually negative, or only faintly positive for opioids even though he takes them for over 10 years. Must be idiosyncratic to his metabolism. -CT a/p on 06/13 confirms 3mm stone in V-U junction, IV fluids and flomax, he received consults and then went on to have cystoscopy and stone removal on 06/15 -He received pain medications for OA of spine Diagnosis -Acute toxic encephalopathy -Meth abuse ruled out -opioid intoxication -Opioid dependence -Chronic pain syndrome -nephrolithiasis T spine DJD Disposition: DC-01 TO HOME OR SELFCARE Time spent for discharge: 33 mins Core Measure Documentation - Palliative Care Palliative Care/ Comfort Measures: Not Applicable - Core Measures Any of the following diagnoses?: none Exam - Constitutional Vitals: Temp Pulse Resp BP Pulse Ox 97.9 F 100 H 16 125/84 99 06/15/18 13:21 06/15/18 13:21 06/15/18 13:21 06/15/18 13:21 06/15/18 13:21 General appearance: Present: no acute distress, well-nourished - EENT Eyes: Present: PERRL ENT: hearing intact, clear oral mucosa - Neck Neck: Present: supple, normal ROM - Respiratory Respiratory effort: normal Respiratory: bilateral: CTA - Cardiovascular Heart Sounds: Present: S1 & S2. Absent: rub, click - Extremities Extremities: pulses symmetrical, No edema Peripheral Pulses: within normal limits - Abdominal General gastrointestinal: Present: soft, non-tender, non-distended, normal bowel sounds Male genitourinary: Present: normal - Integumentary Integumentary: Present: clear, warm, dry - Musculoskeletal Musculoskeletal: gait normal, strength equal bilaterally - Psychiatric Psychiatric: appropriate mood/affect, intact judgment & insight - Neurologic Neurologic: CNII-XII intact, moves all extremities Plan Follow up with: MRATITA RODRIGUEZ MD [Primary Care Provider] - 3-5 Days
[2018-06-15 17:10] VITALS: BP 137/92
[2018-06-15] MEDS: ROXICODONE PO PRN (17:14)
== END 2018-06-15 17:45 | disposition home or self-care (01) | DRG 659 ==
LOC: ED 09:57 → 3A 14:31
PROVIDERS: ADMIT Internal Medicine; ATTEND Internal Medicine
PROC: 0TC68ZZ Extirpation of Matter from Right Ureter, Via Natural or Artificial Opening Endoscopic (ICD-10-PCS; principal; 2018-06-15)
PROC: 0T768DZ Dilation of Right Ureter with Intraluminal Device, Via Natural or Artificial Opening Endoscopic (ICD-10-PCS; 2018-06-15)
PROC: BT1D1ZZ Fluoroscopy of Right Kidney, Ureter and Bladder using Low Osmolar Contrast (ICD-10-PCS; 2018-06-15)
DX: N13.2 Hydronephrosis with renal and ureteral calculous obstruction (principal); G92 Toxic encephalopathy; K72.90 Hepatic failure, unspecified without coma; I10 Essential (primary) hypertension; G40.909 Epilepsy, unspecified, not intractable, without status epilepticus; F32.9 Major depressive disorder, single episode, unspecified; F17.200 Nicotine dependence, unspecified, uncomplicated; F12.90 Cannabis use, unspecified, uncomplicated; E66.9 Obesity, unspecified; M47.814 Spondylosis without myelopathy or radiculopathy, thoracic region; G89.4 Chronic pain syndrome; F11.229 Opioid dependence with intoxication, unspecified; T40.2X5A Adverse effect of other opioids, initial encounter; Z68.39 Body mass index [BMI] 39.0-39.9, adult; Y92.9 Unspecified place or not applicable; Z82.49 Family history of ischemic heart disease and other diseases of the circulatory system
CPT/HCPCS: 36415; 70450; 71045; 72070; 72100; 74177; 74420; 80053; 80307; 80320; 81001; 82140; 82962; 83036; 83735; 84439; 84443; 85025; 85610; 85730; 87116; 93005; 93010; G0378; A4217; C1726; C1758; C1769; C2617; G0480; J1170; J1200; J1630; J2060; J2250; J2370; J2405; J2704; J3010; J7030; J7120; Q9967

== ENCOUNTER 2018-09-13 08:38 | Emergency (ER) | payer OTHER ==
[2018-09-13 09:23] LABS: Hemoglobin 15.9 gm/dl (11.8-15.2); Mean Corpuscular HGB Conc 35 % (32-34); Mean Corpuscular Volume 92 fl (84-94); Platelet Count 311 K/mm3 (140-440); Red Blood Count 4.99 M/mm3 (3.65-5.03); Red Cell Distribution Width 13.8 % (13.2-15.2)
[2018-09-13 09:45] LABS: BUN/Creatinine Ratio 10; Blood Urea Nitrogen 9 mg/dL (9-20); Calcium 8.8 mg/dL (8.4-10.2); Hemolysis Index 16
[2018-09-13] MEDS ORDERED: KEPPRA PO ONE (10:47)
[2018-09-13] MEDS ORDERED: ATIVAN IM ONE (10:47)
--- NOTE | 2018-09-13 11:32 | XRay Report ---
Single view chest: History: Cough. Findings Normal cardiomediastinal silhouette. Trachea is midline. No consolidation, pneumothorax or pleural effusion. Impression: No acute cardiopulmonary findings.
--- NOTE | 2018-09-13 12:04 | Emergency Department Report ---
ED General Adult HPI - General Chief complaint: Seizure Stated complaint: SOB/SEIZURE Time Seen by Provider: 09/13/18 09:56 Source: patient Mode of arrival: Ambulatory Limitations: No Limitations - History of Present Illness Initial comments: She presents to the emergency department for seizure. Patient has been prescribed Keppra but has not taken it in a week. Complains of a cough as well. Patient was chest pain, shows blood, abdominal pain. - Related Data Previous Rx's Medication Instructions Recorded Last Taken Type Sertraline [Zoloft] 50 mg PO QDAY #30 tablet 05/31/18 Unknown Rx amLODIPine [Norvasc] 5 mg PO QDAY #30 tablet 05/31/18 Unknown Rx levETIRAcetam [Keppra TAB] 750 mg PO BID #60 tablet 05/31/18 Unknown Rx ALBUTEROL Inhaler (OR & NICU) 2 puff IH Q4HR PRN #1 inhalation 09/13/18 Unknown Rx [ProAir HFA Inhaler] Benzonatate [Tessalon Perles] 100 mg PO Q8HR PRN #20 capsule 09/13/18 Unknown Rx levETIRAcetam [Keppra TAB] 500 mg PO BID #60 tablet 09/13/18 Unknown Rx predniSONE [Deltasone] 20 mg PO DAILY #15 tablet 09/13/18 Unknown Rx Allergies Allergy/AdvReac Type Severity Reaction Status Date / Time No Known Allergies Allergy Verified 05/24/18 23:11 ED Review of Systems ROS: Stated complaint: SOB/SEIZURE Other details as noted in HPI Comment: All other systems reviewed and negative Constitutional: denies: chills, fever Eyes: denies: eye pain, eye discharge, vision change ENT: denies: ear pain, throat pain Respiratory: denies: cough, shortness of breath, wheezing Cardiovascular: denies: chest pain, palpitations Endocrine: no symptoms reported Gastrointestinal: denies: abdominal pain, nausea, diarrhea Genitourinary: denies: urgency, dysuria Musculoskeletal: denies: back pain, joint swelling, arthralgia Skin: denies: rash, lesions Neurological: denies: headache, weakness, paresthesias Psychiatric: denies: anxiety, depression Hematological/Lymphatic: denies: easy bleeding, easy bruising ED Past Medical Hx - Past Medical History Previous Medical History?: Yes Hx Hypertension: Yes Hx Heart Attack/AMI: No Hx Congestive Heart Failure: No Hx Diabetes: No Hx Liver Disease: No (normal liver profile however elevated ammonia on admissio n) Hx Renal Disease: No Hx Seizures: Yes Hx Asthma: No Hx COPD: No Additional medical history: chronic back and neck pain - Surgical History Past Surgical History?: Yes Additional Surgical History: hernia repair - Social History Smoking Status: Current Every Day Smoker Substance Use Type: None - Medications Home Medications: Home Medications Medication Instructions Recorded Confirmed Last Taken Type Sertraline [Zoloft] 50 mg PO QDAY #30 tablet 05/31/18 06/10/18 Unknown Rx amLODIPine [Norvasc] 5 mg PO QDAY #30 tablet 05/31/18 06/10/18 Unknown Rx levETIRAcetam [Keppra TAB] 750 mg PO BID #60 tablet 05/31/18 06/10/18 Unknown Rx ALBUTEROL Inhaler (OR & NICU) 2 puff IH Q4HR PRN #1 inhalation 09/13/18 Unknown Rx [ProAir HFA Inhaler] Benzonatate [Tessalon Perles] 100 mg PO Q8HR PRN #20 capsule 09/13/18 Unknown Rx levETIRAcetam [Keppra TAB] 500 mg PO BID #60 tablet 09/13/18 Unknown Rx predniSONE [Deltasone] 20 mg PO DAILY #15 tablet 09/13/18 Unknown Rx ED Physical Exam - General Limitations: No Limitations General appearance: alert, in no apparent distress - Head Head exam: Present: atraumatic, normocephalic - Eye Eye exam: Present: normal appearance, PERRL, EOMI - ENT ENT exam: Present: mucous membranes moist - Neck Neck exam: Present: normal inspection - Respiratory Respiratory exam: Present: normal lung sounds bilaterally. Absent: respiratory distress, wheezes, rales - Cardiovascular Cardiovascular Exam: Present: regular rate, normal rhythm. Absent: systolic murmur, diastolic murmur, rubs, gallop - GI/Abdominal GI/Abdominal exam: Present: soft, normal bowel sounds. Absent: distended, tenderness - Rectal Rectal exam: Present: deferred - Extremities Exam Extremities exam: Present: normal inspection - Back Exam Back exam: Present: normal inspection - Neurological Exam Neurological exam: Present: alert, oriented X3, CN II-XII intact. Absent: motor sensory deficit - Psychiatric Psychiatric exam: Present: normal affect, normal mood - Skin Skin exam: Present: warm, dry, intact, normal color. Absent: rash ED Course Vital Signs 09/13/18 09:03 Temperature 98.3 F Pulse Rate 106 H Respiratory 20 Rate Blood Pressure 133/86 O2 Sat by Pulse 97 Oximetry ED Medical Decision Making - Lab Data Result diagrams: 09/13/18 09:11 09/13/18 09:11 Lab Results 09/13/18 09/13/18 09/13/18 Range/Units 09:11 09:11 09:11 WBC 8.7 (4.5-11.0) K/mm3 RBC 4.99 (3.65-5.03) M/mm3 Hgb 15.9 H (11.8-15.2) gm/dl Hct 46.0 H (35.5-45.6) % MCV 92 (84-94) fl MCH 32 (28-32) pg MCHC 35 H (32-34) % RDW 13.8 (13.2-15.2) % Plt Count 311 (140-440) K/mm3 Sodium 137 (137-145) mmol/L Potassium 4.1 (3.6-5.0) mmol/L Chloride 98.9 (98-107) mmol/L Carbon Dioxide 27 (22-30) mmol/L Anion Gap 15 mmol/L BUN 9 (9-20) mg/dL Creatinine 0.9 (0.8-1.5) mg/dL Estimated GFR > 60 ml/min BUN/Creatinine Ratio 10 % Glucose 117 H (75-100) mg/dL Calcium 8.8 (8.4-10.2) mg/dL NT-Pro-B Natriuret Pep 30.36 (0-450) pg/mL - Radiology Data Radiology results: report reviewed - Medical Decision Making Patient given Keppra and Atgagan Critical care attestation.: If time is entered above; I have spent that time in minutes in the direct care of this critically ill patient, excluding procedure time. ED Disposition Clinical Impression: Seizure, Cough Disposition: DC-01 TO HOME OR SELFCARE Is pt being admited?: No Does the pt Need Aspirin: No Condition: Stable Instructions: Acute Cough (ED), Recurrent Seizures Adult (ED) Additional Instructions: return if worse Prescriptions: predniSONE [Deltasone] 20 mg PO DAILY #15 tablet levETIRAcetam [Keppra TAB] 500 mg PO BID #60 tablet ALBUTEROL Inhaler (OR & NICU) [ProAir HFA Inhaler] 2 puff IH Q4HR PRN #1 inhalat ion PRN Reason: Shortness Of Breath Benzonatate [Tessalon Perles] 100 mg PO Q8HR PRN #20 capsule PRN Reason: Cough Referrals: [facility]IGUEL [facility] [Primary Care Provider] - 3-5 Days [facility] [Provider Group] - 3-5 Days [facility] [Provider Group] - 3-5 Days [facility] [Outside] - 3-5 Days Time of Disposition: 12:02
[2018-09-13 13:16] VITALS: BP 138/81
== END 2018-09-13 12:30 | disposition home or self-care (01) ==
LOC: ED 08:38
DX: R56.9 Unspecified convulsions (principal); R05 Cough; R07.89 Other chest pain; I10 Essential (primary) hypertension; M54.2 Cervicalgia; M54.9 Dorsalgia, unspecified; G89.29 Other chronic pain; F17.200 Nicotine dependence, unspecified, uncomplicated
CPT/HCPCS: 36415; 71045; 80048; 83880; 85027; 93005; 93010; 96372; 99284; J2060

== ENCOUNTER 2018-10-17 23:37 | Emergency (ER) | payer SELFPAY ==
[2018-10-17 23:46] VITALS: BP 150/97
[2018-10-18] MEDS ORDERED: KEFLEX PO ONE (00:09)
[2018-10-18] MEDS ORDERED: KEPPRA PO ONE (00:09)
--- NOTE | 2018-10-18 00:14 | Emergency Department Report ---
- General Chief complaint: Skin Rash Stated complaint: CHIN IRRITATION Time Seen by Provider: 10/18/18 00:00 Source: patient Mode of arrival: Ambulatory Limitations: No Limitations - History of Present Illness Initial comments: Patient is a 38-year-old white male with a history of seizures and hypertension who presents to the ED with complaint of acute onset persistent painful eating erythematous maculopapular rash with purulent discharge on his chin and upper lip for the last 24 hours, and which got worse 12 hours ago. Patient denies fever, chills, nausea, vomiting, dizziness, headache, chest pain, change in vision, sore throat or mouth lesions. Patient states that he was giving oral sex to his who has severe vaginal yeast infection when he developed these symptoms. Patient also states that he ran out of his BioSETra and that his medications and would like a refill on them. MD complaint: rash (facial; chin irritation, erythematous maculopapular rash ), abscess/boil -: Sudden, hour(s) (24) Tetanus Up to Date: yes Location: face (chin and upper lip) Severity: severe Severity scale (0 -10): 7 Quality: burning, aching, dull, other (itching) Consistency: constant Improves with: none Worsens with: palpation, other (scratching) Context: none Associated symptoms: denies other symptoms Treatments Prior to Arrival: none - Related Data Previous Rx's Medication Instructions Recorded Last Taken Type Sertraline [Zoloft] 50 mg PO QDAY #30 tablet 05/31/18 Unknown Rx ALBUTEROL Inhaler (OR & NICU) 2 puff IH Q4HR PRN #1 inhalation 09/13/18 Unknown Rx [ProAir HFA Inhaler] Benzonatate [Tessalon Perles] 100 mg PO Q8HR PRN #20 capsule 09/13/18 Unknown Rx levETIRAcetam [Keppra TAB] 500 mg PO BID #60 tablet 09/13/18 Unknown Rx predniSONE [Deltasone] 20 mg PO DAILY #15 tablet 09/13/18 Unknown Rx Mupirocin [Bactroban 2% OINT] 1 applic TP Q8H #1 tube 10/18/18 Unknown Rx Terbinafine (Nf) [LamiSIL] 250 mg PO QDAY #14 tablet 10/18/18 Unknown Rx amLODIPine [Norvasc] 5 mg PO QDAY #30 tablet 10/18/18 Unknown Rx cephALEXin [Keflex] 500 mg PO Q6HR #40 capsule 10/18/18 Unknown Rx levETIRAcetam [Keppra TAB] 750 mg PO BID #60 tablet 10/18/18 Unknown Rx Allergies Allergy/AdvReac Type Severity Reaction Status Date / Time No Known Allergies Allergy Verified 05/24/18 23:11 Abscess Boil HPI - HPI Chief Complaint: Skin Rash Stated Complaint: CHIN IRRITATION Time Seen by Provider: 10/18/18 00:00 Location: Other (face) Severity: Severe History: Yes Pain, Yes Purulent Drainage, No Fever, No Numbness, No Foreign Body, No Previous History, No Insect Bite HPI: Patient is a 38-year-old white male with a history of seizures and hypertension who presents to the ED with complaint of acute onset persistent painful eating erythematous maculopapular rash with purulent discharge on his chin and upper lip for the last 24 hours, and which got worse 12 hours ago. Patient denies fever, chills, nausea, vomiting, dizziness, headache, chest pain, change in vision, sore throat or mouth lesions. Patient states that he was giving oral sex to his who has severe vaginal yeast infection when he developed these symptoms. Patient also states that he ran out of his BioSETra and that his medications and would like a refill on them. Home Medications: Previous Rx's Medication Instructions Recorded Last Taken Type Sertraline [Zoloft] 50 mg PO QDAY #30 tablet 05/31/18 Unknown Rx ALBUTEROL Inhaler (OR & NICU) 2 puff IH Q4HR PRN #1 inhalation 09/13/18 Unknown Rx [ProAir HFA Inhaler] Benzonatate [Tessalon Perles] 100 mg PO Q8HR PRN #20 capsule 09/13/18 Unknown Rx levETIRAcetam [Keppra TAB] 500 mg PO BID #60 tablet 09/13/18 Unknown Rx predniSONE [Deltasone] 20 mg PO DAILY #15 tablet 09/13/18 Unknown Rx Mupirocin [Bactroban 2% OINT] 1 applic TP Q8H #1 tube 10/18/18 Unknown Rx Terbinafine (Nf) [LamiSIL] 250 mg PO QDAY #14 tablet 10/18/18 Unknown Rx amLODIPine [Norvasc] 5 mg PO QDAY #30 tablet 10/18/18 Unknown Rx cephALEXin [Keflex] 500 mg PO Q6HR #40 capsule 10/18/18 Unknown Rx levETIRAcetam [Keppra TAB] 750 mg PO BID #60 tablet 10/18/18 Unknown Rx Allergies/Adverse Reactions: Allergies Allergy/AdvReac Type Severity Reaction Status Date / Time No Known Allergies Allergy Verified 05/24/18 23:11 ED Review of Systems ROS: Stated complaint: CHIN IRRITATION Other details as noted in HPI Comment: All other systems reviewed and negative Constitutional: denies: chills, fever Eyes: denies: eye pain, eye discharge, vision change ENT: other (chin and upper lip erythematous irritated maculopapular rash). denies: ear pain, throat pain Respiratory: denies: cough, shortness of breath, wheezing Cardiovascular: denies: chest pain, palpitations Endocrine: no symptoms reported Gastrointestinal: denies: abdominal pain, nausea, diarrhea Genitourinary: denies: urgency, dysuria Musculoskeletal: denies: back pain, joint swelling, arthralgia Skin: rash (erythematous maculopapular rash on chin and upper lip), change in color, pruritus. denies: lesions Neurological: denies: headache, weakness, paresthesias Psychiatric: denies: anxiety, depression Hematological/Lymphatic: denies: easy bleeding, easy bruising ED Past Medical Hx - Past Medical History Hx Hypertension: Yes Hx Heart Attack/AMI: No Hx Congestive Heart Failure: No Hx Diabetes: No Hx Liver Disease: Yes (abnormal ammonia levels) Hx Renal Disease: No Hx Seizures: Yes Hx Asthma: No Hx COPD: No Additional medical history: chronic back and neck pain - Surgical History Past Surgical History?: Yes Additional Surgical History: hernia repair - Social History Smoking Status: Current Every Day Smoker Substance Use Type: None - Medications Home Medications: Home Medications Medication Instructions Recorded Confirmed Last Taken Type Sertraline [Zoloft] 50 mg PO QDAY #30 tablet 05/31/18 06/10/18 Unknown Rx ALBUTEROL Inhaler (OR & NICU) 2 puff IH Q4HR PRN #1 inhalation 09/13/18 Unknown Rx [ProAir HFA Inhaler] Benzonatate [Tessalon Perles] 100 mg PO Q8HR PRN #20 capsule 09/13/18 Unknown Rx levETIRAcetam [Keppra TAB] 500 mg PO BID #60 tablet 09/13/18 Unknown Rx predniSONE [Deltasone] 20 mg PO DAILY #15 tablet 09/13/18 Unknown Rx Mupirocin [Bactroban 2% OINT] 1 applic TP Q8H #1 tube 10/18/18 Unknown Rx Terbinafine (Nf) [LamiSIL] 250 mg PO QDAY #14 tablet 10/18/18 Unknown Rx amLODIPine [Norvasc] 5 mg PO QDAY #30 tablet 10/18/18 Unknown Rx cephALEXin [Keflex] 500 mg PO Q6HR #40 capsule 10/18/18 Unknown Rx levETIRAcetam [Keppra TAB] 750 mg PO BID #60 tablet 10/18/18 Unknown Rx ED Physical Exam - General Limitations: No Limitations General appearance: alert, in no apparent distress - Head Head exam: Present: atraumatic, normocephalic, normal inspection - Eye Eye exam: Present: normal appearance, PERRL, EOMI. Absent: scleral icterus, conjunctival injection, periorbital swelling, periorbital tenderness - ENT ENT exam: Present: normal exam, mucous membranes moist, TM's normal bilaterally, normal external ear exam, other (Erythematous maculopapular rash on chin and upper lip) - Neck Neck exam: Present: normal inspection, full ROM. Absent: tenderness - Respiratory Respiratory exam: Present: normal lung sounds bilaterally. Absent: respiratory distress, wheezes, rales, rhonchi, chest wall tenderness, accessory muscle use, decreased breath sounds, prolonged expiratory - Cardiovascular Cardiovascular Exam: Present: regular rate, normal rhythm, normal heart sounds. Absent: systolic murmur, diastolic murmur, rubs, gallop - GI/Abdominal GI/Abdominal exam: Present: soft, normal bowel sounds. Absent: tenderness, guarding, rebound, hyperactive bowel sounds, hypoactive bowel sounds, organomegaly - Rectal Rectal exam: Present: deferred - Extremities Exam Extremities exam: Present: normal inspection, full ROM, normal capillary refill - Back Exam Back exam: Present: normal inspection, full ROM. Absent: tenderness, CVA tenderness (L), muscle spasm, paraspinal tenderness, vertebral tenderness - Neurological Exam Neurological exam: Present: alert, oriented X3, CN II-XII intact, normal gait, reflexes normal - Psychiatric Psychiatric exam: Present: normal affect, normal mood. Absent: anxious, flat affect, manic, homicidal ideation, suicidal ideation - Skin Skin exam: Present: warm, dry, intact, rash, erythema, vesicles, other (Erythematous maculopapular vesicular rash on chin and upper lip) ED Course Vital Signs 10/17/18 23:43 Temperature 98 F Pulse Rate 100 H Respiratory 18 Rate Blood Pressure 150/97 [Left] O2 Sat by Pulse 100 Oximetry - Reevaluation(s) Reevaluation #1: 10/18/18 00:27 Patient is alert and oriented 3 and is not in distress but anxious. Patient was treated in the ED with Keflex 1 g by mouth 1 and also given Keppra 1 g by mouth 1. Patient was discharged home on antibiotics and antifungal tablets, and also his Keppra and amlodipine were also renewed for him. Patient advised to follow-up at [facility] to establish care in the next 3-5 days. Patient advised to return to the ED immediately if symptoms get worse. ED Medical Decision Making - Medical Decision Making Patient is alert and oriented 3 and is not in distress but anxious. Patient was treated in the ED with Keflex 1 g by mouth 1 and also given Keppra 1 g by mouth 1. Patient was discharged home on antibiotics and antifungal tablets, and also his Keppra and amlodipine were also renewed for him. Patient advised to follow-up at [facility] to establish care in the next 3-5 days. Patient advised to return to the ED immediately if symptoms get worse. - Differential Diagnosis Acute folliculitis; Medication refil; Tinea corporis Critical care attestation.: If time is entered above; I have spent that time in minutes in the direct care of this critically ill patient, excluding procedure time. ED Disposition Clinical Impression: Acute folliculitis, Tinea corporis Disposition: DC-01 TO HOME OR SELFCARE Is pt being admited?: No Does the pt Need Aspirin: No Condition: Stable Instructions: Folliculitis (ED), Tinea Corporis (ED) Additional Instructions: Take medications with food, drink plenty of fluids and follow-up with your primary care physician in 5-7 days for reevaluation. Return to the ED immediately if symptoms worse. Prescriptions: Mupirocin [Bactroban 2% OINT] 1 applic TP Q8H #1 tube cephALEXin [Keflex] 500 mg PO Q6HR #40 capsule levETIRAcetam [Keppra TAB] 750 mg PO BID #60 tablet Terbinafine (Nf) [LamiSIL] 250 mg PO QDAY #14 tablet amLODIPine [Norvasc] 5 mg PO QDAY #30 tablet Referrals: [facility] [Outside] - 3-5 Days Time of Disposition: 00:31 Print Language: MALAY
== END 2018-10-18 00:46 | disposition home or self-care (01) ==
LOC: ED 23:37
DX: L73.9 Follicular disorder, unspecified (principal); B35.4 Tinea corporis; G89.29 Other chronic pain; I10 Essential (primary) hypertension; F17.200 Nicotine dependence, unspecified, uncomplicated